=== PATIENT | male | born 1945 | race Caucasian/White ===

== ENCOUNTER 2019-05-10 18:16 | Inpatient (IN) | payer MEDICARE, OTHER ==
[~2019-05-10] VITALS: Ht 180.3 cm; Wt 84.4 kg
[~2019-05-10 18:16] MED LIST: MAGCHL64ER PO; METR500 PO; OXYACE5T PO
[2019-05-10 18:50] LABS: BASOPHILS ABSOLUTE AUTO 0.02 K/mm3 (0.00-0.23); BASOPHILS PERCENT AUTO 0 % (0-2); EOSINOPHILS ABSOLUTE AUTO 0.02 K/mm3 (0.00-0.68); EOSINOPHILS PERCENT AUTO 0 % (0-6); Hematocrit 38.1 % (37.0-53.0); IMMATURE GRAN ABSOLUTE AUTO 0.01 K/mm3 (0.00-0.10); IMMATURE GRAN PERCENT AUTO 0 % (0-1); LYMPHOCYTES ABSOLUTE AUTO 0.49 K/mm3 (0.84-5.20); LYMPHOCYTES PERCENT AUTO 8 % (21-46); MONOCYTES ABSOLUTE AUTO 0.77 K/mm3 (0.16-1.47); MONOCYTES PERCENT AUTO 12 % (4-13); Mean Corpuscular HGB 35.1 pg (26.0-34.0); Mean Corpuscular HGB Conc 34.1 g/dL (31.5-36.5); Mean Corpuscular Volume 103 fL (80-100); Mean Platelet Volume 10.1 fL (9.1-12.4); NEUTROPHILS ABSOLUTE AUTO 4.96 K/mm3 (1.96-9.15); NEUTROPHILS PERCENT AUTO 79 % (41-73); Platelet Count 125 K/mm3 (150-400); RDW Coefficient Variation 14.2 % (11.7-14.2); RDW Standard Deviation 53.7 fL (35.1-46.3); White Blood Cell Count 6.27 K/mm3 (4.00-11.30)
[2019-05-10 19:13] LABS: Alanine Aminotransfer (ALT/SGP 68 U/L (12-78); Albumin/Globulin Ratio 0.9 (0.8-1.8); Alk Phos 120 U/L (50-136); Anion Gap 16 mmol/L (6-16); Aspartate Aminotrans (AST/SGOT 93 U/L (12-37); Bilirubin, Total 2.8 mg/dL (0.1-1.0); Blood Urea Nitrogen 8 mg/dL (8-24); Bun/Creatinine Ratio 12.1 (12.0-20.0); CO2, Blood 20 mmol/L (21-32); Calcium, Blood 8.1 mg/dL (8.5-10.1); Chloride, Blood 104 mmol/L (98-108); Creatinine, Blood 0.66 mg/dL (0.60-1.20); Globulin, Blood 3.3 g/dL (2.2-4.0); Glomerular Filtration Rate >60 (60-); Glucose, Blood 116 mg/dL (70-99); Potassium, Blood 4.2 mmol/L (3.5-5.5); Sodium, Blood 140 mmol/L (136-145); Total Protein, Blood 6.3 g/dL (6.4-8.2)
[2019-05-10 19:17] LABS: Troponin I 0.677 ng/mL (0.000-0.040)
[2019-05-10 19:39] LABS: CPK Creatine Kinase 823 U/L (39-308)
[2019-05-10 19:58] LABS: Creatine Kinase MB <1.0 ng/mL (0.0-3.6); Creatine Kinase MB Index Unable to Calculate (0.0-4.0)
[2019-05-10 20:05] LABS: International Normalized Ratio 1.16; Prothrombin Time Results 12.1 Sec (9.7-11.5)
[2019-05-10 20:22] LABS: Ethanol (Alcohol), Blood, Med <3 mg/dL
[2019-05-10 21:00] LABS: Source, Urine Catheter
[2019-05-10 21:06] LABS: Bilirubin, Urine Neg (Neg); Blood, Urine 3+ (Neg); Glucose Qualitative, Urine Neg (Neg); Ketones, Urine 2+ (Neg); Leukocyte Esterase, Urine 1+ (Neg); Nitrite, Urine Neg (Neg); Protein, Urine 2+ (Neg); Urobilinogen, Urine 1+ (Normal)
[2019-05-10 21:20] LABS: Appearance, Urine Clear (Clear); Color, Urine Yellow (P-Yellow)
[2019-05-10 21:22] LABS: Bacteria Few /hpf; Mucus Light (0-Heavy); Red Blood Cells, Urine 0-2 /hpf (0-2); Squamous Epithelial Cells Rare /hpf (Few); White Blood Cells, Urine 0-2 /hpf (0-5)
[2019-05-10 21:47] LABS: U Amphetamine Screen Not Detected; U Barbituate Screen Not Detected; U Benzodiazapine Screen Not Detected; U Buprenorphine Screen Not Detected; U Cannabinoids Screen Not Detected; U Cocaine Screen Not Detected; U Methadone Screen Not Detected; U Methamphetamine Screen Not Detected; U Opiates Screen Not Detected; U Oxycodone Screen Not Detected; U Phencyclidine Screen Not Detected; U Propoxyphene Screen Not Detected
[2019-05-11 01:26] LABS: Magnesium, Blood 0.8 mg/dL (1.6-2.4); Troponin I 0.92 ng/mL (0.000-0.040)
--- NOTE | 2019-05-11 01:32 | NUR ---
CRITICAL LABS: CALL IS RECIEVED FROM LAB TO REPORT CRITICAL LABS FOLLOWS. LACTIC ACID 4.0, TROPONIN 0.920 AND MAG OF 0.8. CALL IS PLACED TO DR HERNÁNDEZ, AWAITING CALL BACK AT THIS TIME.
--- NOTE | 2019-05-11 01:34 | NUR ---
LATE ENTRY FOR 05/11/19 0100, ADMISSION: PATIENT IS RECIEVED FROM ER VIA STRETCHER. REPORTING GENERALIZED PAIN 01/06. HEPARIN IS INFUSING, THIS ORDER IS DISCONTINUED BY DR EDMONDS AND IS STOPPED. BED BATH IS GIVEN, SKIN IS INTACT. IV FENTANYL IS GIVEN FOR PAIN WITH GOOD EFFECT.
--- NOTE | 2019-05-11 01:42 | NUR ---
CRITICAL LABS: CALL BACK RECIEVED FROM DR HERNÁNDEZ, ORDER FOR MAG 2 GRAMS IV NOW IS OBTAINED.
[2019-05-11 01:43] LABS: Creatine Kinase MB 6.5 ng/mL (0.0-3.6)
[2019-05-11 04:12] LABS: Hematocrit 35.1 % (37.0-53.0); Hemoglobin 11.9 g/dL (13.5-17.5); Mean Corpuscular HGB Conc 33.9 g/dL (31.5-36.5); Mean Corpuscular Volume 103 fL (80-100); Mean Platelet Volume 10.1 fL (9.1-12.4); Platelet Count 96 K/mm3 (150-400); RDW Coefficient Variation 13.9 % (11.7-14.2); RDW Standard Deviation 52.8 fL (35.1-46.3); White Blood Cell Count 4.06 K/mm3 (4.00-11.30)
[2019-05-11 04:31] LABS: Alanine Aminotransfer (ALT/SGP 55 U/L (12-78); Albumin, Blood 2.6 g/dL (3.4-5.0); Albumin/Globulin Ratio 0.9 (0.8-1.8); Alk Phos 99 U/L (50-136); Anion Gap 7 mmol/L (6-16); Aspartate Aminotrans (AST/SGOT 76 U/L (12-37); Bilirubin, Total 2.9 mg/dL (0.1-1.0); Blood Urea Nitrogen 7 mg/dL (8-24); Bun/Creatinine Ratio 11.8 (12.0-20.0); CO2, Blood 28 mmol/L (21-32); Calcium, Blood 7.5 mg/dL (8.5-10.1); Chloride, Blood 106 mmol/L (98-108); Creatinine, Blood 0.59 mg/dL (0.60-1.20); Globulin, Blood 2.8 g/dL (2.2-4.0); Glomerular Filtration Rate >60 (60-); Glucose, Blood 124 mg/dL (70-99); Potassium, Blood 3.4 mmol/L (3.5-5.5); Sodium, Blood 141 mmol/L (136-145); Total Protein, Blood 5.4 g/dL (6.4-8.2)
--- NOTE | 2019-05-11 04:40 | NUR ---
CRITICAL LAB: CALL WAS RECIEVED FROM LAB, LACTIC ACID IS CRITICAL AT 2.1. THIS IS IMPROVED FROM 4.0. RESULT IS REVIEWED WIOTH CHARGE NURSE, NO CALL TO MD THIS IS AN EXPECTED TREND.
--- NOTE | 2019-05-11 06:18 | NUR ---
SHIFT SUMMARY: HEPARIN GTT WAS DC'D. VS ARE STABLE WITH HTN AND TACHYCARDIA, PATIENT IS ASYMPTAMATIC, MD IS AWARE. ORDER FOR REGULAR DIET WAS OBTAINED, PT TOLERATES APPLE JUICE WELL. PATIENT REPORTS PAIN 8-10/10 WITH ANY MOVEMENT, IV FENTANYL IS EFFECTIVE FOR PAIN. T&P IS PROVIDED, PT CAN NOT TURN INDEPENDANTLY.
[2019-05-11 07:12] LABS: Troponin I 0.979 ng/mL (0.000-0.040)
[2019-05-11 07:35] LABS: Creatine Kinase MB 4.8 ng/mL (0.0-3.6); Creatine Kinase MB Index 0.9 (0.0-4.0)
--- NOTE | 2019-05-11 07:37 | NUR ---
CRITICAL LAB: TROPONIN IS CRITICAL AT 0.979, DR MICHAEL IS NOTIFIED AN ORDER TO REPEAT TROPONIN IN 6 HOURS. MD IS ALSO NOTIFIED OF ELEVATED BP'S. MD WILL BE IN TO EVALUATE PATIENT AND VS. PATIENT REMAINS ASYMPTOMATIC ABND IS RESTING IN BED.
--- NOTE | 2019-05-11 11:08 | NUR ---
Pt transferred to ICU 5.
--- NOTE | 2019-05-11 11:15 | NUR ---
PT TRANFERRED TO ICU FROM PCU IN BED POST RAPID RESPONSE. PT IN SEVERE RESPIRATORY DISTRESS, ON NRB 15L/MIN-SATURATIONS DIFFICULT TO OBTAIN 85-89%. LUNGS COARSE T/O. TACHYPNEIC HEARTRATE TACHY 140-150'S, BP ELEVATED. RESTLESS, RX WITH ATIVAN. DR. JAEGER AT BEDSIDE, REVIEWED PT. SKIN MOTTLED, MOIST. 2 NEW PIV PLACED. GARNER PLACED-MINIMAL 3 CC YELLOW URINE OBTAINED. PLANS FOR INTUBATION.
--- NOTE | 2019-05-11 11:38 | NUR ---
RAPID RESONSE This RN and PCT at bedside at approx 1030 for attends change and reposition of pt. Pt given 25 mcg of fentanyl per orders for pain 8/ prior to repositioning. Pt alert and oriented, 95% RA, conversing appropriately with staff during care. Pt denies chest pain or pressure during care. Pt rolled initially onto the pt's left side without distress. Pt then rolled onto his right side and agitation increased. Pt placed in fowlers and mild respiratory distress noted. Oximeter reads 62% RA and moderate distress ensues. oxygen applied. Pt saturations suddenly drop to 30%; pt cyanotic, grunting, and in severe distress. 15L non-rebreather placed. Rapid Response called. RT at bedside. director of health education at bedside. Rapid response team at bedside. Pt o2 saturations improved to 92% on NRB mask.
--- NOTE | 2019-05-11 12:10 | NUR ---
RX WITH ATIVAN MG, PROPOFOL STARTED. DR. JAEGER INTUBATED PT WITHOUT PROBLEMS, 8.0 ETT 24 DARIEL, COLOR CHANGE ETCO2, BREATH SOUNDS BILATERALLY. SATURATIONS STABLE WITH 100% FI02, CHANGED TO PORTABLE VENT FOR SCAN. HEPARIN GTT STARTED AT 15 UNITS/KG/HR PER PHARMACIST. OGT PLACED, AIR BOLUS OVER STOMACH HEARD. SCANT URINE OUTPUT. BOLUS INFUSING NS 999. HEARTRATE IMPROVED-SINUS 90'S NOW. BP STABLE. TO CT AND RETURN WITHOUT INCIDENT. URINE OUTPUT IMPROVING. PROPOFOL AT 40 MCG/KG/MIN. COLOR IMPROVED, MOTTLING RESOLVED.
[2019-05-11 12:22] LABS: pH Blood Arterial 7.38 (7.35-7.45)
[2019-05-11 12:23] LABS: PCO2 Arterial 39.7 mmHg (35-45); PO2 Arterial 94.9 mmHg (80-100)
--- NOTE | 2019-05-11 13:00 | NUR ---
DR. JAEGER REVIEWED CT, HEPARIN D/C, NO PE. PT TOLERATING VENT. SUCTIONED THICK CREAM SECRETIONS, SPECIMEN SENT. FIO2 DECREASED TO 65%, SATURATIONS 98%. FLUID BOLUS ONE LITER INFUSED-BECAME HYPOTENSIVE, PROPOFOL ON HOLD WITHOUT IMPROVEMENT. DR. JAEGER NOTIFIED, SECOND BOLUS STARTED WITH IMPROVEMENT OF BP. NO FAMILY LISTED TO NOTIFY. ABG DONE BY THERAPIST. BLOOD SUGAR STABLE. LABS DRAWN
--- NOTE | 2019-05-11 13:46 | NUR ---
VANESSA JAEGER AT BEDSIDE. VSS NOW. NSR 80'S. TOLERATING VENT
[2019-05-11 15:11] LABS: BASOPHILS ABSOLUTE AUTO 0.01 K/mm3 (0.00-0.23); BASOPHILS PERCENT AUTO 0 % (0-2); EOSINOPHILS ABSOLUTE AUTO 0.01 K/mm3 (0.00-0.68); EOSINOPHILS PERCENT AUTO 0 % (0-6); Hemoglobin 12.4 g/dL (13.5-17.5); IMMATURE GRAN ABSOLUTE AUTO 0.02 K/mm3 (0.00-0.10); IMMATURE GRAN PERCENT AUTO 1 % (0-1); LYMPHOCYTES ABSOLUTE AUTO 0.38 K/mm3 (0.84-5.20); LYMPHOCYTES PERCENT AUTO 9 % (21-46); MONOCYTES ABSOLUTE AUTO 0.34 K/mm3 (0.16-1.47); MONOCYTES PERCENT AUTO 8 % (4-13); Mean Corpuscular HGB 35.2 pg (26.0-34.0); Mean Corpuscular HGB Conc 33.5 g/dL (31.5-36.5); Mean Corpuscular Volume 105 fL (80-100); Mean Platelet Volume 10.3 fL (9.1-12.4); NEUTROPHILS ABSOLUTE AUTO 3.52 K/mm3 (1.96-9.15); NEUTROPHILS PERCENT AUTO 82 % (41-73); Platelet Count 91 K/mm3 (150-400); RDW Standard Deviation 53.4 fL (35.1-46.3); Red Blood Cell Count 3.52 M/mm3 (4.30-5.90); White Blood Cell Count 4.28 K/mm3 (4.00-11.30)
[2019-05-11 15:23] LABS: International Normalized Ratio 1.22; Prothrombin Time Results 12.7 Sec (9.7-11.5)
--- NOTE | 2019-05-11 15:31 | NUR ---
BP MARGINAL. IVF AT 150 CC/HR. NSR. SEDATED WTIH 25 MCG/KG/MIN PROPOFOL COUGHS, RESTLESS WITH ORAL CARE. BILATERAL WRIST RESTRAINTS, EXTUBATION RISK. LABS DRAWN
[2019-05-11 15:39] LABS: Alanine Aminotransfer (ALT/SGP 48 U/L (12-78); Albumin, Blood 2.2 g/dL (3.4-5.0); Albumin/Globulin Ratio 0.8 (0.8-1.8); Alk Phos 95 U/L (50-136); Anion Gap 7 mmol/L (6-16); Aspartate Aminotrans (AST/SGOT 58 U/L (12-37); Bilirubin, Total 2.5 mg/dL (0.1-1.0); Blood Urea Nitrogen 8 mg/dL (8-24); Bun/Creatinine Ratio 10.4 (12.0-20.0); CO2, Blood 26 mmol/L (21-32); Calcium, Blood 6.8 mg/dL (8.5-10.1); Chloride, Blood 107 mmol/L (98-108); Creatinine, Blood 0.77 mg/dL (0.60-1.20); Globulin, Blood 2.8 g/dL (2.2-4.0); Glomerular Filtration Rate >60 (60-); Glucose, Blood 119 mg/dL (70-99); Magnesium, Blood 1.2 mg/dL (1.6-2.4); Phosphorus, Blood 2.6 mg/dL (2.5-4.9); Potassium, Blood 3.6 mmol/L (3.5-5.5); Sodium, Blood 140 mmol/L (136-145)
--- NOTE | 2019-05-11 16:00 | NUR ---
NOTIFIED DR. JAEGER OF TROPONIN, ECHO RESULTS. VSS. TOLERATING VENT
--- NOTE | 2019-05-11 17:41 | NUR ---
DR. LOBO HERE-UPDATED. SEE ORDERS
--- NOTE | 2019-05-11 18:21 | NUR ---
IV MAGNESIUM AND POTASSIUM REPLACEMENTS STARTED. IV LASIX GIVEN. WILL MONITOR VS CLOSELY. PT MORE AWAKE, RESTLESS, TOLERATING VENT SUPPORT WITH PROPOFOL AT 35 MCG/KG/MIN. NSR. SBP 90'S. FI02 DECREASED TO 30%. UO ADEQATE VIA GARNER. OGT WITH 25 CC BROWNISH RED DRAINAGE. CLAMPED FOR PO PLAVIX.
--- NOTE | 2019-05-11 20:16 | NUR ---
ASSUMED PT CARE FROM ALEX LERMA AT 1915. PT INTUBATED AND SEDATED. PROPOFOL AT 35MCG/KG/MIN UPON CHANGE OF SHIFT. VENT SETTINGS: AC 18, TV 400, PEEP 8, FIO2 30%. ETT 8.0 AND 24CM AT THE LIP. OG WAS CLAMPED D/T RECENT ADMINISTRATION OF PLAVIX PER TUBE. LUNG SOUNDS ARE DIMINISHED T/O ALL LOBES WITH MODERATE AMOUNTS OF THICK, YELLOW SECRETIONS SUCTIONED FROM ETT. PT WITH EXCESSIVE ORAL SECRETIONS; WITH PINK STREAKED SECRETIONS SUCTIONED FROM DEEP SUBGLOTTIC SUCTIONING. POSITIVE GAG AND COUGH REFLEX. HEART TONES ARE VERY DISTANT AND UNABLE TO ADEQUATELY HEAR. NSR WITH HR 80'S. BP'S ARE ON THE LOWER END WITH SBP 90'S, BUT MAP IS MAINTAINING AROUND 60-65 MM HG. TEMP GARNER PROBE IS READING A TEMP OF 100.8; REMOVED ALL BLANKETS AND PILLOWS AND OBTAINED FAN FOR BEDSIDE. URINE OUTPUT APPEARS ADEQUATE AND IS YONI IN COLOR AND CLEAR. PT APPEARS VERY EDEMATOUS TO BILATERAL LEGS AND THIGHS, WELL TO SCLERA AND EYE LIDS. SHORTLY AFTER ASSUMPTION OF CARE AT 1945 PT HAD AN EPISODE OF OXYGEN SATURATIONS DECREASING TO LOW 80'S; NO HIGH PEAK PRESSURES WERE ALARMING AT THIS TIME. PT WAS IMMEDIATELY INCREASED TO 100% FIO2 AND SUCTIONED BOTH ORALLY AND VIA ETT. AFTER SUCTIONING PT'S BIOX INCREASED TO 90%. RT AT BEDSIDE TITRATING FIO2 TO EFFECT; ABLE TO TITRATE FAR DOWN AT 45% WITH BIOX >91%. MEDICATED WITH ADJUNCT FENTANYL FOR SEDATION D/T PT NOT TOLERATING ETT AND CLENCHING DOWN AROUND ETT, WELL ATTEMPTING TO PROTUDE TONGUE TO PUSH OUT ETT. FENTANYL APPEARED EFFECTIVE; THEREFORE, TURNED PROPOFOL DOWN TO 25MCG/KG/MIN. CALLED DR. JAEGER AT 2029 FOR AN UPDATE ON PT CONDITION. NEW ORDERS TO INCREASE PEEP TO 10 AND TO MAINTAIN NS AT 150MLS/HR FOR BLOOD PRESSURE SUPPORT. ALSO OBTAINED ORDERS FOR ELECTROLYTE REPLACEMENT PROTOCOL. NO NEW ORDERS. WILL CONTINUE TO MONITOR FOR ANY CHANGES.
--- NOTE | 2019-05-11 21:15 | NUR ---
PLACED CALL TO DR. JAEGER UPDATED REGARDING PT'S OXYGEN SATURATIONS DECREASING TO 85% WITH PEEP OF 10 AND 100% FIO2. NO SECRETIONS SUCTIONED VIA ORAL AND ETT. NEW ORDERS TO TITRATE PEEP TO 12 AND UP TO 15 TO MAINTAIN OXYGEN SATURATIONS. RT AT BEDSIDE AND INCREASED PEEP TO 12 AND ABLE TO TITRATE FIO2 DOWN TO 50%. LUNG SOUNDS MORE CLEAR T/O ALL LOBES. BIOX IS CURRENTLY AT 98%. ALSO OBTAINED NEW ORDERS FOR FENTANYL 25-50MCG IV Q1 PRN FOR ADJUNCT SEDATION.
--- NOTE | 2019-05-12 03:32 | NUR ---
CHANGE PT HAD ANOTHER EPISODE OF A DECREASE IN HIS OXYGEN SATURATIONS DOWN TO LOW 80'S. PEEP WAS AT 12, FIO2 INCREASED TO 100%, AND MINIMAL THICK, YELLOW PLUGS SECRETED FROM ETT. BIOX REMAINED AT 85%. INCREASED PEEP TO 14 AND REPOSITIONED PT BACK ON HIS BACK. PT REMAINED AT 85% FOR SIGNIFICANT AMOUNT OF TIME. BUMPED PEEP TO 15 PER ORDERS AND PT RECOVERED WITH BIOX 91% WITH FIO2 AT 100%. BIOX SLOWLY INCREASED TO 100% IN WHICH RT STARTED TITRATING BACK DOWN ON PEEP AND FIO2. PT IS CURRENTLY AT PEEP OF 10 AND FIO2 40%. PT CONTINUES TO HAVE THE RECURRENT EPISODES OF DECREASED OXYGEN SATURATIONS IN WHICH IT TAKES HIM A WHILE TO RECOVER. LUNG SOUNDS REMAIN CLEAR TO DIMINISHED T/O ALL LOBES.
[2019-05-12 03:40] LABS: BASOPHILS ABSOLUTE AUTO 0.02 K/mm3 (0.00-0.23); BASOPHILS PERCENT AUTO 1 % (0-2); EOSINOPHILS ABSOLUTE AUTO 0.09 K/mm3 (0.00-0.68); EOSINOPHILS PERCENT AUTO 2 % (0-6); Hematocrit 35.9 % (37.0-53.0); Hemoglobin 11.8 g/dL (13.5-17.5); IMMATURE GRAN ABSOLUTE AUTO 0.02 K/mm3 (0.00-0.10); IMMATURE GRAN PERCENT AUTO 1 % (0-1); LYMPHOCYTES PERCENT AUTO 22 % (21-46); MONOCYTES PERCENT AUTO 7 % (4-13); Mean Corpuscular HGB 35.4 pg (26.0-34.0); Mean Corpuscular HGB Conc 32.9 g/dL (31.5-36.5); Mean Platelet Volume 10.8 fL (9.1-12.4); NEUTROPHILS ABSOLUTE AUTO 2.71 K/mm3 (1.96-9.15); NEUTROPHILS PERCENT AUTO 67 % (41-73); Platelet Count 79 K/mm3 (150-400); RDW Coefficient Variation 14.2 % (11.7-14.2); RDW Standard Deviation 56.4 fL (35.1-46.3); Red Blood Cell Count 3.33 M/mm3 (4.30-5.90); White Blood Cell Count 4.04 K/mm3 (4.00-11.30)
[2019-05-12 03:51] LABS: International Normalized Ratio 1.21; Prothrombin Time Results 12.6 Sec (9.7-11.5)
[2019-05-12 03:54] LABS: Mean Corpuscular Volume 108 fL (80-100)
[2019-05-12 04:18] LABS: Alanine Aminotransfer (ALT/SGP 44 U/L (12-78); Albumin, Blood 2.2 g/dL (3.4-5.0); Albumin/Globulin Ratio 0.8 (0.8-1.8); Anion Gap 7 mmol/L (6-16); Aspartate Aminotrans (AST/SGOT 57 U/L (12-37); Bilirubin, Total 1.8 mg/dL (0.1-1.0); Blood Urea Nitrogen 9 mg/dL (8-24); CO2, Blood 25 mmol/L (21-32); Calcium, Blood 7.5 mg/dL (8.5-10.1); Chloride, Blood 109 mmol/L (98-108); Creatinine, Blood 0.82 mg/dL (0.60-1.20); Globulin, Blood 2.9 g/dL (2.2-4.0); Glomerular Filtration Rate >60 (60-); Glucose, Blood 105 mg/dL (70-99); Magnesium, Blood 1.5 mg/dL (1.6-2.4); Phosphorus, Blood 3.3 mg/dL (2.5-4.9); Potassium, Blood 3.8 mmol/L (3.5-5.5); Sodium, Blood 141 mmol/L (136-145); Total Protein, Blood 5.1 g/dL (6.4-8.2)
[2019-05-12 04:21] LABS: Percent Saturation 30.5 % (20.0-50.0)
[2019-05-12 04:27] LABS: PCO2 Arterial 37.7 mmHg (35-45); PO2 Arterial 187 mmHg (80-100); pH Blood Arterial 7.43 (7.35-7.45)
[2019-05-12 04:35] LABS: Alk Phos 91 U/L (50-136); CPK Creatine Kinase 311 U/L (39-308)
[2019-05-12 04:48] LABS: Troponin I 0.714 ng/mL (0.000-0.040)
[2019-05-12 05:02] LABS: Creatine Kinase MB 2.2 ng/mL (0.0-3.6); Creatine Kinase MB Index 0.7 (0.0-4.0)
--- NOTE | 2019-05-12 05:23 | NUR ---
END OF SHIFT SUMMARY REMAINS INTUBATED/SEDATED. PROPOFOL MAINTAINING AT 25MCG/KG/MIN T/O NIGHT. PT WITHDRAWALS FROM NOXIOUS STIMULI, BUT STILL UNABLE TO FOLLOW ANY COMMANDS. VENT: AC 18, TV 400, PEEP 8, FIO2 30%. WITH BIOX > 91%. OXYGEN SATURATIONS TEND TO DECREASE SIGNIFICANTLY AFTER REPOSITIONING IN WHICH IT TAKES PT A WHILE TO RECOVER. LUNG SOUNDS REMAIN CLEAR TO DIMINISHED T/O ALL LOBES. PT HAS BEEN NSR WITH HR 70-80'S T/O SHIFT. VSS. TMAX 100.8; REMOVAL OF BLANKETS AND FAN BROUGHT TEMP DOWN TO 97.9. HEPARIN CONTINUES AT 14 UNITS/KG/HR. NS AT 150MLS/HR. ADEQUATE URINARY OUTPUT THIS SHIFT; ACCOUNTING FOR 850. DARK YONI COLORED URINE WITH MINIMAL SEDIMENT NOTED. PT REMAINS EDEMATOUS TO BLE'S. NO FAMILY AT BEDSIDE AT THIS TIME. WILL CONTINUE TO MONITOR UNTIL REPORT IS HANDED OFF TO ONCOMING RN.
--- NOTE | 2019-05-12 08:00 | NUR ---
INITIAL ASSESMENT PT SEDATED AND AROUSABLE TO PAINFUL STIM. PROP REMAINS AND WILL WEAN TOLERATED. PUPILS EQUAL AND NO /S OF NONVERBAL PAIN AT THIS TIME. VSS, NSR AND EDEMAD T/O HEPARIN QTT REMAINS AND WILL ADJUST PER RX. AFEBRILE AND PALP PULSES T/O. ETT 8 AT 24 AND REMAINS ON VENT SE RT FLOWSHEET. NO S/S OF RESP DISTRESS OR ACUTE DESAT AT THIS TIME. CLEAR AND DIM WITH MINIMAL SPUTUM. OG TO LIS WITH BILE OUTPUT. UO MINIMAL BUT GREATER THAN 30ML/HR DARK YONI AND CLEAR. ABD SOFT ROUND AND NON TENDER AND NO BM. WILL CONT TO MONITOR
--- NOTE | 2019-05-12 09:30 | NUR ---
SBT PT PLACED ON SBT AND PROPOFOL OFF. TOLERATING THUS FAR. WILL CONT TO MONITOR.
--- NOTE | 2019-05-12 13:30 | NUR ---
PT UPDATE PT PLACED BACK ON VENT AND PROPOFOL REINITIATED. VSS, PT RESTLES AND FOLLOWING COMMANDS. VSS AND TOLERATING VENT SETTINGS. WILL INITIATE TF GIVEN PT WILL REMAIN INTUBATED. GARNER INTACT AND DRAINING. WILL CONT TO MONITOR
--- NOTE | 2019-05-12 20:23 | NUR ---
ASSUMED PT CARE FROM ALEX COLLIER AT 1915 PT REMAINS INTUBATED/SEDATED. PROPOFOL AT 30MCG/KG/MIN. PT WITHDRAWALS FROM NOXIOUS STIMULI AND ATTEMPTS TO MAKE PURPOSEFUL MOVEMENT TOWARDS ETT. PT REMAINS IN BILATERAL SOFT WRIST RESTRAINTS. DOES NOT OPEN EYES TO VERBAL STIMULI; OR FOLLOW COMMANDS. HOWEVER, WILL REASSESS DURING SEDATION VACATION WITH SPONTANEOUS BREATHING TRIAL IN THE AM. ETT 8.0 AND 24CM AT THE LIP. VENT SETTINGS: AC 18, TV 400, PEEP 5, FIO2 30%, AND BIOX 99%. LUNG SOUNDS ARE CLEAR T/O ALL LOBES. MODERATE AMOUNTS OF THICK PALE, YELLOW SECRETIONS SUCTIONED FROM ETT. HEART TONES REMAIN DISTANT; HR 70-80'S AND NOTED TO BE NORMAL SINUS. BLOOD PRESSURES STABLE WITH MAP GREATER THAN 65 MM HG. NS INFUSING AT 50MLS/HR, HEPARIN REMAINS AT 14 UNITS/KG/HR PER PHARMACY CONSULT. PIVOT 1.5 INFUSING AT 25MLS/HR; GOAL OF 40MLS/HR; DUE TO INCREASE AT 2100. RESIDUAL CHECK WAS 0CC. PT REMAINS EDEMATOUS. MINIMAL URINE OUTPUT NOTED TO GARNER CATHETER. DARK YONI COLORED URINE NOTED WITH STREAKS OF RED/PINK SEDIMENT NOTED TO CATHETER TUBING. TEMP IS 100.0; THEREFORE, REMOVED BLANKETS AND PLACED FAN IN FRONT OF PT. WILL CONTINUE TO MONITOR.
[2019-05-13 03:28] LABS: BASOPHILS ABSOLUTE AUTO 0.03 K/mm3 (0.00-0.23); BASOPHILS PERCENT AUTO 1 % (0-2); EOSINOPHILS ABSOLUTE AUTO 0.13 K/mm3 (0.00-0.68); EOSINOPHILS PERCENT AUTO 4 % (0-6); Hematocrit 34.2 % (37.0-53.0); Hemoglobin 11.2 g/dL (13.5-17.5); IMMATURE GRAN ABSOLUTE AUTO 0.01 K/mm3 (0.00-0.10); IMMATURE GRAN PERCENT AUTO 0 % (0-1); LYMPHOCYTES ABSOLUTE AUTO 0.67 K/mm3 (0.84-5.20); LYMPHOCYTES PERCENT AUTO 23 % (21-46); MONOCYTES ABSOLUTE AUTO 0.41 K/mm3 (0.16-1.47); MONOCYTES PERCENT AUTO 14 % (4-13); Mean Corpuscular HGB 34.8 pg (26.0-34.0); Mean Corpuscular HGB Conc 32.7 g/dL (31.5-36.5); Mean Corpuscular Volume 106 fL (80-100); Mean Platelet Volume 10.4 fL (9.1-12.4); NEUTROPHILS ABSOLUTE AUTO 1.68 K/mm3 (1.96-9.15); NEUTROPHILS PERCENT AUTO 57 % (41-73); NRBC ABSOLUTE 0.02 K/mm3 (0.00-0.02); NRBC Auto 0.7 /100 WBC (0.0-0.2); Platelet Count 84 K/mm3 (150-400); RDW Coefficient Variation 14.1 % (11.7-14.2); RDW Standard Deviation 54.9 fL (35.1-46.3); Red Blood Cell Count 3.22 M/mm3 (4.30-5.90); White Blood Cell Count 2.93 K/mm3 (4.00-11.30)
[2019-05-13 03:43] LABS: Albumin, Blood 2.1 g/dL (3.4-5.0); Anion Gap 10 mmol/L (6-16); Blood Urea Nitrogen 11 mg/dL (8-24); Bun/Creatinine Ratio 15.6 (12.0-20.0); CO2, Blood 24 mmol/L (21-32); Calcium, Blood 7.2 mg/dL (8.5-10.1); Chloride, Blood 108 mmol/L (98-108); Creatinine, Blood 0.71 mg/dL (0.60-1.20); Glomerular Filtration Rate >60 (60-); Glucose, Blood 118 mg/dL (70-99); Magnesium, Blood 1.4 mg/dL (1.6-2.4); Phosphorus, Blood 2.2 mg/dL (2.5-4.9); Potassium, Blood 3.4 mmol/L (3.5-5.5); Sodium, Blood 142 mmol/L (136-145)
--- NOTE | 2019-05-13 06:19 | NUR ---
END OF SHIFT SUMMARY PT REMAINS INTUBATED AND SEDATED. AROUND 0000 PT CHANGED FROM AC TO SPONTANEOUS WITH PRESSURE SUPPORT 7/5 AND FIO2 30%. PROPROFOL DECREASED DOWN TO 10MCG/KG/MIN AT THAT TIME. PT ABLE TO FOLLOW COMMANDS APPROPRIATELY, TRACK WITH EYES, AND SHAKE HEAD APPROPRIATELY TO YES/NO QUESTIONS. PT TOLERATED SPONTANEOUS FOR ABOUT FOUR HOURS IN WHICH HE WAS GETTING RESTLESS AND IN ORDER TO MAKE MORE COMFORTABLE PT SWITCHED BACK TO AC 16, TV 400, PEEP 5, FIO2 30%. PROPOFOL INCREASED TO 30MCG/KG/MIN. PT HAS BEEN NSR WITH HR 70-90'S. BLOOD PRESSURES STABLE. HEPARIN CURRENTLY INFUSING AT 15UNITS/KG/HR. NS AT 50MLS/HR. REPLACING MAGNESIUM AND POTASSIUM PHOSPHATE PER ELECTROLYTE REPLACEMENT PROTOCOL. TUBE FEEDING, PIVOT 1.5, REMAINS AT GOAL OF 40CC/HR WITH 30CC WATER FLUSHES Q4HRS. NO RESIDUALS NOTED ALL SHIFT; PT TOLERATING WELL. TEMP GARNER PROBE SHOWING TMAX OF 100.2. CATHETER IS PATENT AND DRAINING TO GRAVITY DARK, YELLOW URINE WITH RED/PINK SEDIMENT. MINIMAL OUTPUT; 250CC THIS SHIFT. PT REMAINS EDEMATOUS AND FLUID POSITIVE. HOWEVER, LUNG SOUNDS REMAIN CLEAR T/O ALL LOBES. MODERATE AMOUNTS OF THICK PALE, YELLOW SECRETIONS SUCTIONED. WILL CONTINUE TO MONITOR UNTIL REPORT IS HANDED OFF TO ONCOMING RN.
--- NOTE | 2019-05-13 07:16 | NUR ---
UPON CHANGE OF SHIFT DURING BEDSIDE REPORTING IT WAS MENTIONED REGARDING PT HAVING ORDERS FOR ELECTROLYTE REPLACEMENT PROTOCOL; THEREFORE, PT WAS RECEIVING 4GM OF MAGNESIUM FOR A LEVEL OF 1.4. ONCOMING NURSE QUESTIONED ORDER IN WHICH WE BOTH AGREED IT GENERALLY IS 2GM AND THAT 4GM SEEMED TO HIGH. UPON DOUBLE CHECKING ORDERS TOGETHER WE FOUND A DISCREPANCY BETWEEN WHAT THE FACILITY PROTOCOL IS VIA POLICY STAT VS WHAT THE PROTOCOL VIA THE ACTUAL ORDER SET STATES. ORDER SET STATES A MG LEVEL OF 1.4 SHOULD BE REPLACED WITH 4GM OF MAGNESIUM; HOWEVER, THE PROTOCOL VIA OUR POLICY STATES A MG LEVEL OF 1.4 SHOULD BE REPLACED WITH 2GM. THEREFORE, WE BOTH HARD SET THE PUMP TO STOP ADMINISTERING MAGNESIUM AFTER 2GM. 4GM OF MAGNESIUM COMES IN A 100ML BAG; CURRENTLY INFUSING AT 25MLS/HR; TOTAL INFUSED WAS 31CC; THEREFORE, VTBI SET FOR ANOTHER 19CC TO TOTAL 2GM OF MAGNESIUM INFUSED.
--- NOTE | 2019-05-13 10:40 | NUR ---
MAGNESIUM DOCUMENTATION... PER JONNATHAN PLANING MACHINE OPERATOR... MAG. INFUSION WAS NOTED TO BE JUST 2GM ON ELECTROLYTE PROTOCOL POLICY FOR A MAG LEVEL OF 1.4 THIS AM. THE INFUSING MAG. IVPB WAS SET TO INFUSE JUST 2GM WITH THE HARD LIMITS ON THE PUMP. THIS WAS COMPLET AT [address] HERNDON WAS INFORMED TO THE MAG LEVEL AND 2 GRAM MAG INFUSION AND MEDICALLY APPROVED THIS ACTION. AT APPROX 0850 PHARMACY WAS CALLED AND NOTIFIED OF THE POLICY AND THE ACTUAL REPLACEMENT PROTOCAL ORDER.
--- NOTE | 2019-05-13 13:24 | NUR ---
early am pt note...PT IS VENTILATED ON AC SETTINGS, GOOD SATS, VSS, I/O NOTED AND MAG INFUSING FOR TOTAL OF 2 GRAMS. PT IVF SETTINGS IS NOTED PER FLOWSHEET. PT IS RESTRAINED WITH NEW ORDERS PLACED. DR HRENDON WAS IN TO SEE AND ASSESS PT AND POSSIBLE LASIX ORDER TO FOLLOW, SEE EMAR.
--- NOTE | 2019-05-13 13:47 | NUR ---
PT REMAINS ON PS-7 TRAIL W/O DISTRESS AND VSS.
--- NOTE | 2019-05-13 17:45 | NUR ---
APPROX 15OO PT CHANGED BACK TO AC 18,400,30%,PEEP5 DUE TO FATIGUE AND AGITATION WITH RR UP IN THE MID 30 RANGE. TF FORMULA WAS CHANGED AND TUBING TOMORROW. TF IS AT NEW RATE SENCE CHANGE PER DIETARY TO 30ML AND W/O RESUDUALS. PT U.O NOTED WITH LASIX IVP TO HAVE INCREASED.
--- NOTE | 2019-05-13 17:50 | NUR ---
WITH PROPOFOL INC TO 45MCG AND FENTALYL PUSHES PT HAS RESTED BETTER ON THE AC SETTINGS. VSS, I/O NOTED, THIN WHITE SECREATIONS NOTED WITH SX. PT REMAINS RESTRAINED, SATS STABLE, TEMP IS ELEVATED NOTED TO 101.7 AND MEDICATED NOTED AND WILL FOLLOW AND REPORT. REMAINS SR WITH BORDERLING FIRST DEGREE AV BLOCK.
--- NOTE | 2019-05-13 20:00 | NUR ---
ASSUMPTION OF CARE ASSUMED CARE OF PT @ 1900. PT INTUBATED AND SEDATED, VENT SET TO AC 18/400/5/30%, O2 SATURATIONS 98%, LS COARSE T/O, LARGE PALE YELLOW SECRETIONS FROM ETT. MONITOR SHOWS SINUS RHYTHM WITH RATE 70'S, BP 114/59 MAP 75. PROPFOL RUNNING AT 45mcg/kg/min, PT RESPONDS TO PAINFUL STIMULI, GRIMACES WITH ORAL CARE. SKIN IS WARM, FRAGILE, AND DRY, PETICHIAE TO BUE, HEPARIN RUNNING AT 31ml/hr PER PHARMACY ORDER. CONTRACTURES NOTED TO FINGERS, BILATERALLY. TF RUNNING @ GOAL RATE OF 30ml/hr, SMALL SOFT BM, GARNER IN PLACE DRAINING DARK YELLOW URINE, SOME SEDIMENT PRESENT.
--- NOTE | 2019-05-14 00:51 | NUR ---
SPOKE WITH DR HERNDON REGARDING BLOOD FROM OG TUBE, BP STABLE, NO CHANGE IN HR AND RHYTHM, ABDOMEN SOFT. NO NEW ORDERS AT THIS TIME.
[2019-05-14 03:50] LABS: BASOPHILS ABSOLUTE AUTO 0.03 K/mm3 (0.00-0.23); BASOPHILS PERCENT AUTO 1 % (0-2); EOSINOPHILS ABSOLUTE AUTO 0.15 K/mm3 (0.00-0.68); EOSINOPHILS PERCENT AUTO 4 % (0-6); Hematocrit 34.3 % (37.0-53.0); Hemoglobin 11.2 g/dL (13.5-17.5); IMMATURE GRAN ABSOLUTE AUTO 0.02 K/mm3 (0.00-0.10); IMMATURE GRAN PERCENT AUTO 1 % (0-1); LYMPHOCYTES ABSOLUTE AUTO 1.18 K/mm3 (0.84-5.20); LYMPHOCYTES PERCENT AUTO 30 % (21-46); MONOCYTES ABSOLUTE AUTO 0.72 K/mm3 (0.16-1.47); MONOCYTES PERCENT AUTO 18 % (4-13); Mean Corpuscular HGB Conc 32.7 g/dL (31.5-36.5); Mean Corpuscular Volume 107 fL (80-100); Mean Platelet Volume 10.2 fL (9.1-12.4); NEUTROPHILS ABSOLUTE AUTO 1.82 K/mm3 (1.96-9.15); NEUTROPHILS PERCENT AUTO 46 % (41-73); Platelet Count 79 K/mm3 (150-400); RDW Coefficient Variation 14.3 % (11.7-14.2); RDW Standard Deviation 55.7 fL (35.1-46.3); White Blood Cell Count 3.92 K/mm3 (4.00-11.30)
[2019-05-14 04:02] LABS: Anion Gap 9 mmol/L (6-16); Blood Urea Nitrogen 11 mg/dL (8-24); Bun/Creatinine Ratio 16.8 (12.0-20.0); CO2, Blood 23 mmol/L (21-32); Calcium, Blood 7.2 mg/dL (8.5-10.1); Chloride, Blood 107 mmol/L (98-108); Creatinine, Blood 0.65 mg/dL (0.60-1.20); Glomerular Filtration Rate >60 (60-); Glucose, Blood 113 mg/dL (70-99); Phosphorus, Blood 2.9 mg/dL (2.5-4.9); Potassium, Blood 3.6 mmol/L (3.5-5.5); Sodium, Blood 139 mmol/L (136-145)
--- NOTE | 2019-05-14 05:43 | NUR ---
SHIFT SUMMARY PT REMAINS INTUBATED AND SEDATED, VENT SET TO AC 18/400/5/30%, O2 SATURATIONS MAINTAINED ABOVE 90%, LUNG SOUNDS COARSE WITH SOME WHEEZING, DIMINISHED IN THE BASES. THICK SANDOVAL TO PALE YELLOW WITH SCANT AMOUNT OF BLOOD FROM ETT. MONITOR SHOWS SINUS RHYTHM, RATE 70'S, MAP 60'S-70'S. TMAX THIS SHIFT 100.4, PRN TYLENOL PROVIDED. OG WITH TF @ GOAL RATE OF 30ml/hr, LOW RESIDUALS, RED DRAINAGE NOTED FROM OG MIDSHIFT, END OF SHIFT RESIDUALS FORMULA/BILE ONLY. GARNER IN PLACE DRAINING YONI COLORED URINE. HEPARIN MANAGED PER PHARMACY, INCREASED TO 17u (33ml/hr) THIS SHIFT. SOME PAIN/DISCOMFORT NOTED T/O SHIFT, PRN FENTANYL ADEQUATE FOR PAIN MANAGEMENT.
--- NOTE | 2019-05-14 07:20 | NUR ---
ASSUMED CARE AT 0700. REPORT FROM FRANCISCO JOHNSON. PT INTUBATED AND SEDATED. VENT SETTINGS AC 18/400/5/30%. PROPOFOL INFUSING AT 45 MCG/KG/MIN. PT RESPONSES TO PAINFUL STIMULI. LUNGS CLEAR. 1+ EDEMA TO LOWER EXTREMITIES. DEPENDENT EDEMA TO SCROTUM AND HANDS. ELEVATED HANDS c PILLOWS. ABD DISTENDED, SOFT, BT X 4. TUBE FEEDINGS CONTINOUS, PIVOT 1.5 AT GOAL OF 30 ML/HR, FLUSH Q4 30 ML. 70 ML RESIDUALS c GASTRIC CONTENT AND FORMULA. TEMP GARNER IN PLACE, PATENT AND DRAINING TO GRAVITY, YONI URINE c SEDIMENT. HEPARIN INFUSING AT 17 UNITS/KG/HR. VSS. WILL CONTINUE TO MONITOR.
--- NOTE | 2019-05-14 08:43 | NUR ---
SEDATION VACATION PROPOFOL PLACED ON STANDBY AT 0735. PT FOLLOWING COMMANDS, VENT SETTINGS CHANGED TO SPONT PS 7/5/30%. MAINTAINED ADEQUATE TITAL VOLUMES, 500'S, AND RATE, 20'S. PT AGGITATED c CARE, TACHYPNEIC, GRIMACING. STARTED PROPOFOL AT 20 MCG/KG/MIN. PT REMAINS ON SPONT VENT SETTINGS, TOLERATING WELL. CLUB DIRECTOR IN TO SEE PT, HEPARIN D/C'D.
--- NOTE | 2019-05-14 13:18 | NUR ---
PROPOFOL PLACED ON STANDBY STARTED PRECEDEX AT 0.4 MCG/KG/HR, PT FOLLOWING COMMANDS. RT AT BEDSIDE FOR T PIECE TRIAL. PT TOLERATED WELL FOR APPROX 15 MINUTES, THEN O2 SATS DECREASED TO MID 80'S, TACHYPNEIC. INCREASINGLY DIFFICULT TO REDIRECT. SUCTIONED THROUGH ETT, THICK WHITE SECRETIONS. RT CANCELLED TRIAL, PLACED ON VENT AT SPONT PS 7/5/40%. PROPOFOL RESTARTED AT 20 MCG/KG/MIN. WILL ATTEMPT AGAIN THIS AFTERNOON.
--- NOTE | 2019-05-14 17:15 | NUR ---
SHIFT SUMMARY PT REMAINS INTUBATED AND SEDATED. VENT SETTINGS AC 18/400/5/30%. PROPOFOL INFUSING AT 15 MCG/KG/HR AND PRECEDEX AT 0.2 MCG/KG/HR. SEDATION VACATION THIS SHIFT. PT FOLLOWED COMMANDS, SPONTANEOUS SETTINGS FOR HALF OF SHIFT. T TRIAL LASTED APPROX 20 MINUTES, PT BECAME AGGITATED, TACHYPNEIC, O2 SATS DECREASED TO HIGH 80'S. DR HERNDON UPDATED. STATED THAT WE WILL ATTEMPT AGAIN TOMORROW. LUNGS CLEAR. PT HAD MODERATE SECRETIONS DURING SHIFT, THIN, WHITE. TUBE FEEDING CONTINUES AT 30 ML/HR c q4 30 ML FLUSHES, RESIDUALS 70-80 ML THIS SHIFT. BM THIS SHIFT. TEMP PROBE GARNER PATENT AND DRAINING TO GRAVITY, YONI URINE c SEDIMENT. HEPARIN DRIP D/C'D THIS SHIFT BY DR VARGAS. REPORT TO ONCOMING NURSE.
--- NOTE | 2019-05-14 20:30 | NUR ---
ASSUMPTION OF CARE ASSUMED CARE OF PT @ 1900. PT INTUBATED AND SEDATED, RESPONDS TO PAINFUL STIMULI. VENT SET TO 18/400/5/30%, LS CLEAR AND DIMINISHED, SUCTIONED LARGE AMOUNT OF THICK SANDOVAL SECRETIONS FROM ETT. MONITOR SHOWS SINUS RHYTHM, WITH 1 DEGREE AV BLOCK, HR 60'S, BP MAPS 60'S-70'S. HYPOACTIVE BOWEL TONES, TF @ GOAL RATE OF 30ml/hr. GARNER IN PLACE DRAINING DARK TEA/RED TINGED COLORE URINE. PROPOFOL RUNNING @15, PRECEDEX @ 0.2 (SEE FLOWSHEET)
[2019-05-15 03:34] LABS: BASOPHILS ABSOLUTE AUTO 0.02 K/mm3 (0.00-0.23); BASOPHILS PERCENT AUTO 1 % (0-2); EOSINOPHILS ABSOLUTE AUTO 0.11 K/mm3 (0.00-0.68); EOSINOPHILS PERCENT AUTO 3 % (0-6); Hematocrit 31.2 % (37.0-53.0); Hemoglobin 10.2 g/dL (13.5-17.5); IMMATURE GRAN ABSOLUTE AUTO 0.04 K/mm3 (0.00-0.10); IMMATURE GRAN PERCENT AUTO 1 % (0-1); LYMPHOCYTES ABSOLUTE AUTO 0.66 K/mm3 (0.84-5.20); LYMPHOCYTES PERCENT AUTO 19 % (21-46); MONOCYTES ABSOLUTE AUTO 0.78 K/mm3 (0.16-1.47); MONOCYTES PERCENT AUTO 22 % (4-13); Mean Corpuscular HGB 35.2 pg (26.0-34.0); Mean Corpuscular HGB Conc 32.7 g/dL (31.5-36.5); Mean Corpuscular Volume 108 fL (80-100); Mean Platelet Volume 10.7 fL (9.1-12.4); NEUTROPHILS ABSOLUTE AUTO 1.88 K/mm3 (1.96-9.15); NEUTROPHILS PERCENT AUTO 54 % (41-73); NRBC ABSOLUTE 0.02 K/mm3 (0.00-0.02); NRBC Auto 0.6 /100 WBC (0.0-0.2); Platelet Count 79 K/mm3 (150-400); RDW Coefficient Variation 14.4 % (11.7-14.2); RDW Standard Deviation 56.8 fL (35.1-46.3); White Blood Cell Count 3.49 K/mm3 (4.00-11.30)
[2019-05-15 03:48] LABS: Anion Gap 7 mmol/L (6-16); Blood Urea Nitrogen 14 mg/dL (8-24); Bun/Creatinine Ratio 21.9 (12.0-20.0); CO2, Blood 22 mmol/L (21-32); Calcium, Blood 7.2 mg/dL (8.5-10.1); Chloride, Blood 110 mmol/L (98-108); Creatinine, Blood 0.64 mg/dL (0.60-1.20); Glomerular Filtration Rate >60 (60-); Glucose, Blood 135 mg/dL (70-99); Phosphorus, Blood 2.7 mg/dL (2.5-4.9); Potassium, Blood 3.6 mmol/L (3.5-5.5); Sodium, Blood 139 mmol/L (136-145)
--- NOTE | 2019-05-15 05:44 | NUR ---
CALL PLACED TO DR HERNDON REGARDING MILD ECTOPY NOTED ON MONITOR, MORNING LABS SHOWED POTASSIUM OF 3.6, MAG DRAWN ON 05/13 WAS 1.4, LOW URINE OUTPUT THIS SHIFT TEA/RED TINGED COLOR. ORDERS TO GIVE 2G MAGNESIUM IV X1.
--- NOTE | 2019-05-15 06:21 | NUR ---
DR VARGAS IN TO SEE PT, UPDATED ON PTS STATUS, NO NEW ORDERS AT THIS TIME.
--- NOTE | 2019-05-15 06:52 | NUR ---
SHIFT SUMMARY PT REMAINS INTUBATED AND SEDATED, VENT SET TO 18/400/5/30%, O2 SATURATIONS MAINTAINED ABOVE 95%, LS COARSE TO CLEAR, DIMINISHED IN THE BASES T/O SHIFT, SMALL TO MODERATE AMOUNT OF CLEAR TO SANDOVAL SECRETIONS FROM ETT T/O SHIFT. MONITOR SHOWS SINUS RHYTHM RATE 56-65, SOME ECTOPY THIS SHIFT (SEE NURSING NOTE) 2G MAG IV CURRENTLY INFUSING. LOW URINE OUTPUT THIS SHIFT, DR HERNDON UPDATED, WILL BE IN TO EVALUATE PT THIS MORNING. PT ON PROPOFOL @ 15 AND PRECEDEX @ 0.2, PT VERY DROWSY BUT AROUSABLE AND ABLE TO ANSWER YES/NO QUESTIONS. PRN FENTANYL ADEQUATE FOR PAIN MANAGEMENT.
--- NOTE | 2019-05-15 07:53 | NUR ---
DR GIORDANO AT THE BEDSIDE TO ASSESS PT. WILL RECHECK IONIZED CA.
--- NOTE | 2019-05-15 09:09 | NUR ---
PT CHANGED TO SIMV MODE: PS-7, P-5, FI0-25%. PROPOFOL PLACED ON STANDBY AND PT REMAINING CALM AT THIS TIME. RR LOW 20'S RANGE. TV'S- 650-700'S RANGE.
--- NOTE | 2019-05-15 12:59 | NUR ---
PT UPDATE: PT ALERT ENOUGH TO DO BEDSIDE SWALLOW EVALUATION. PT PASSED. PT ASSISTED WITH ICE CHIPS AND ICE WATER, HE REMAINS SLIGHTLY TOO WEAK IN COMBINATION WITH UE CONTRACTURES IN HANDS THAT ASSISTANCE WAS NEEDED WITH FLUIDS. LUNGS REMAIN CLEAR BUT DIMINISHED IN THE BILATERAL BASES. CONTINUES TO HAVE A WET, PRODUCTIVE COUGH. PT SWALLOWS SPUTUM.
--- NOTE | 2019-05-15 14:28 | NUR ---
1315-NOTED PT'S O2 SATURAION WENT DOWN LOW 80% ON 5LPM OF NC. PT WAS HAVING DIFFICULTY BREATHING. INCREASED O2 TO 7 LPM AND PLACED NC TO MOUTH SINCE PT IS MOSTLY MOUTH BREATHING. CALLED RT JULIEN TO START PT ON VENTURI MASK SINCE 02 SATURATION HAS INCREASED TO >90 BUT DOES NOT SUSTAIN OVER 90. PT LOOKS SLIGHTLY PURPLE. 1330-JULIEN RT IS STILL IN PT'S ROOM. PT WENT INTO FLUSHED PULMONARY EDEMA. DR. HERNDON WAS NOTIFIED. ORDERS RECEIVED. BIPAP WAS STARTED AT 12/7, BUR 8, FIO2 100% 1341-40MG LASIX IV GIVEN ORDERED. PT HAD DEFECATED AT THIS TIME WELL WITH WATERY, LOOSE DARK GREEN STOOL. AFTER PT WAS CLEANED, PT WAS STARTING TO BE MORE AND MORE CONFUSED AND AGITATED AND STILL ON BIPAP. PT STARTED PULLING OFF BIPAP & TUBINGS. BE MORE AND MORE CONFUSED. DR. HERNDON WAS AGAIN NOTIFIED. 1400-DR. HERNDON AT BEDSIDE. PRECEDEX WAS STARTED @ 0.6MCG/KG/HR. PT WAS MEDICATED WITH ATIVAN AND FENTANYL. 1445-PT IS STILL ON BIPAP FI02 NOW AT 35%. PT IS MORE CALM AT THIS TIME.
--- NOTE | 2019-05-15 15:15 | NUR ---
PT UPDATE: RESPIRATORY STATUS IMPROVED. PT TOLERATING BIPAP WELL, AND MORE ALERT AT THIS TIME. PT ABLE TO ANSWER SIMPLE YES/NO QUESTIONS, AND FOLLOW SIMPLE COMMANDS. BIPAP PRESSURES DECREASED TO 10/5, RATE-8, FI02-35%, WITH SATS IN THE MID 90% RANGE. NTG PASTE PLACED ON LT CW TO MAINTAIN LOW BP'S. BP'S IMPROVE AFTER DOSE OF LASIX AND PT IS DIURESING WELL.
--- NOTE | 2019-05-15 16:45 | NUR ---
SHIFT SUMMARY: PT IS SLIGHTLY DROWSY WITH USE OF TITRATED PRECEDEX, FOR BIPAP TOLERANCE. PT TAKEN OUT OF RESTRAINTS AT 1600, AFTER HE BECAME COOPERATIVE WITH BIPAP. PT BEING GIVEN A BIPAP BREAK AND ON 5L 02 VIA N/C, SATS 95%. NO C/O PAIN. PT ABLE TO MAKE NEEDS KNOWN. FOLLOWS COMMANDS AND ANSWERS QUESTIONS APPROPRIATLEY. LUNGS ARE CLEAR IN THE UPPER LOBES, BUT DIMINISHED W/EXP WHEEZES IN THE BILATERAL BASES. BREATHES SHALLOW, EVEN, AND UNLABORED AT REST. ABD SOFT/ROUND/NON-TENDER TO PALPATION. BT'S ACTIVE X4. PT REMAINS MOSTLY NPO, EXCEPT SMALL AMTS OF WATER. PT NEEDS CONTINUING EDUCATION ON PACING FOOD/FLUID. PT DURESED WELL (1350ML) AFTER 40MG LASIX IV.
--- NOTE | 2019-05-15 19:33 | NUR ---
REPORTED OFF TO ALEX DE SANTIAGO WHOM IS ASSUMING CARE OF THIS PT.
--- NOTE | 2019-05-15 22:24 | NUR ---
ASSUMED PT CARE AT 1915 PT IS RESTING IN BED WITH BIPAP IN PLACE. 03/03; FIO2 30%. PT ALERT AND ORIENTED AND ABLE TO MAKE NEEDS KNOWN. PRECEDEX GTT AT 0.5MCG/KG/HR. VS APPEAR STABLE AT THIS TIME. WILL CONTINUE TO MONITOR.
[2019-05-16 03:54] LABS: BASOPHILS ABSOLUTE AUTO 0.02 K/mm3 (0.00-0.23); BASOPHILS PERCENT AUTO 1 % (0-2); EOSINOPHILS ABSOLUTE AUTO 0.11 K/mm3 (0.00-0.68); EOSINOPHILS PERCENT AUTO 3 % (0-6); Hematocrit 31.5 % (37.0-53.0); Hemoglobin 10.5 g/dL (13.5-17.5); IMMATURE GRAN ABSOLUTE AUTO 0.02 K/mm3 (0.00-0.10); IMMATURE GRAN PERCENT AUTO 1 % (0-1); LYMPHOCYTES ABSOLUTE AUTO 0.59 K/mm3 (0.84-5.20); LYMPHOCYTES PERCENT AUTO 17 % (21-46); MONOCYTES ABSOLUTE AUTO 0.56 K/mm3 (0.16-1.47); MONOCYTES PERCENT AUTO 16 % (4-13); Mean Corpuscular HGB 35.6 pg (26.0-34.0); Mean Corpuscular HGB Conc 33.3 g/dL (31.5-36.5); Mean Corpuscular Volume 107 fL (80-100); Mean Platelet Volume 10.8 fL (9.1-12.4); NEUTROPHILS ABSOLUTE AUTO 2.24 K/mm3 (1.96-9.15); NEUTROPHILS PERCENT AUTO 63 % (41-73); Platelet Count 100 K/mm3 (150-400); RDW Coefficient Variation 14.1 % (11.7-14.2); RDW Standard Deviation 55.8 fL (35.1-46.3); Red Blood Cell Count 2.95 M/mm3 (4.30-5.90); White Blood Cell Count 3.54 K/mm3 (4.00-11.30)
[2019-05-16 04:07] LABS: Albumin, Blood 2.2 g/dL (3.4-5.0); Anion Gap 7 mmol/L (6-16); Blood Urea Nitrogen 17 mg/dL (8-24); Bun/Creatinine Ratio 22.5 (12.0-20.0); CO2, Blood 26 mmol/L (21-32); Calcium, Blood 7.8 mg/dL (8.5-10.1); Chloride, Blood 108 mmol/L (98-108); Creatinine, Blood 0.76 mg/dL (0.60-1.20); Glomerular Filtration Rate >60 (60-); Glucose, Blood 108 mg/dL (70-99); Phosphorus, Blood 2.8 mg/dL (2.5-4.9); Potassium, Blood 3.7 mmol/L (3.5-5.5); Sodium, Blood 141 mmol/L (136-145)
--- NOTE | 2019-05-16 05:09 | NUR ---
END OF SHIFT SUMMARY NO SIGNIFICANT CHANGES SINCE LAST ENTRY. PT TITRATED OFF PRECEDEX THIS AM. TAKEN OFF BIPAP AROUND 0200 FOR A BREAK. PT REMAINED ON RA UNTIL HE FELL ASLEEP AROUND 0400 WHERE HE WAS PLACED ON 2L VIA NC D/T OXYGEN SATURATIONS DIPPING TO THE 80'S. PT REMAINS ALERT AND ORIENTED AND ABLE TO MAKE NEEDS KNOWN. VSS. CALL LIGHT WITHIN REACH. WILL CONTINUE TO MONITOR UNTIL REPORT IS HANDED OFF TO ONCOMING RN.
--- NOTE | 2019-05-16 06:29 | NUR ---
PT HAS A NON-SUSTAINED RUN OF VTACH. ASYMPTOMATIC. ORDERS RETRIEVED FOR STAT MAGNESIUM LEVEL.
--- NOTE | 2019-05-16 07:30 | NUR ---
AM ASSESSMENT: PT IS ALERT AND ORIENTED TO SELF/PLACE/FOLLOWS DIRECTIONS. SPEECH IS CLEARER AND EASIER TO UNDERSTAND TODAY. PT REMAINS WEAK, BUT ABLE TO MOVE ALL EXTREMITIES. WILL HAVE PT/OT WORK WITH PT TODAY, NOW THAT RESP STATUS HAS IMPROVED. PT DENIES ANY PAIN. LUNGS ARE CLEAR BUT DIMINISHED/TIGHT, WITH EXP WHEEZES IN THE BILATERAL BASES. SPO2 >90% ON RA. HR REGULAR, SR-70'S RANGE. GENERALIZED/DEPENDENT EDEMA, SEE NN. NS-TKO. GARNER TEMP PROBE DRAINING YELLOW COLORED URINE TO GRAVITY. PT HAS GOOD DIURESIS WITH LASIX IVP. ABD SOFT/ROUND/NON-TENDER TO PALPATION. BT'S ACTIVE X4 QAUDS. NO BM YET THIS SHIFT. WILL ATTEMPT TO ADVANCE DIET TO DAY, HOWEVER, WOULD LIKE TO OBTAIN A SPEECH EVAL FIRST FOR CONCERNS FOR SILENT ASPIRATION.
--- NOTE | 2019-05-16 09:57 | NUR ---
SPEECH THERAPY: SPEECH INTO ASSESS PT. PT NORMALLY WEARS DENTURES, THEREFORE WILL ORDER A [facility] SOFT DIET. NO MIXED CONSISTANCIES/NO STRAWS.
--- NOTE | 2019-05-16 10:54 | NUR ---
PT/OT IN WORKING WITH PT. SEE THERAPY NOTES. PT REPORTS FENTANYL HELPFUL IN REDUCING PAIN TO A TOLERABLE LEVEL 11/06.
--- NOTE | 2019-05-16 11:30 | NUR ---
DR BILLS AT THE BEDSIDE TO ASSESS PT. SEE NEW ORDERS.
--- NOTE | 2019-05-16 13:30 | NUR ---
PT UPDATE: PT REPORTS CONTINUED RT KNEE PAIN. WILL OBTAIN XRAY AND GIVE PAIN MEDS WHEN ORDERED.
--- NOTE | 2019-05-16 16:20 | NUR ---
SHIFT SUMMARY: PT REMAINS ALERT AND ORIENTED T/O SHIFT. DID WELL WORKING WITH PT/OT TODAY. NEEDS TO CONT WITH THERAPY HE IS QUITE DECONDITIONED. PT'S MAIN C/O TODAY WAS RT KNEE PAIN (NEW) R/T FALL APPROX 1 WEEK AGO. RT KNEE XRAYED. PT CURRENTLY HAS 10/1O PAIN DESPITE TRAMADOL GIVEN EARLIER. 1 TIME DOSE OF FENTANYL 25 MCG IVP FOR PAIN MANAGEMENT. PT IS NOW MEDICAL FLOOR STATUS AND WILL TNX WHEN BED AVAILABLE. LUNGS REMAIN CLEAR BUT DIMINISHED IN THE BASES. LESS COUGHING AND SPUTUM PRODUCTION TODAY. SPO2 MID 90% ON 2L 02 VIA N/C. HR REMAINS REG, SR-70-80'S RANGE WITH 1ST DEGREE AVB AND PROLONGED QT/QTC. PT GIVEN 2GM OF MAGNESIUM IVPB FOR LOW LEVEL. PT STILL HAS RECTAL TUBE WITH SMALL AMT OF LOOSE BROWN STOOL. GOOD URINE OUTPUT PER GARNER TEMP PROBE WITH USE OF LASIX IVP.
--- NOTE | 2019-05-16 18:50 | NUR ---
ATTEMPTED TO CALL REPORT TO 305 NURSE. ROOM IS STILL DIRTY AND RN REPORTS THEY WILL CALL FOR REPORT WHEN THE ROOM IS CLEAN.
--- NOTE | 2019-05-16 19:29 | NUR ---
REPORTED OFF TO ALEX OSBORNE WHOM WILL ASSUME CARE OF PT UNTIL HE TRANSFERS NEW ROOM.
--- NOTE | 2019-05-16 22:20 | NUR ---
REPORT TO Lexie AHUMADA RN W PT STATUS. PT HAS BEEN AWAKE, WATCHING TV. SWALLOWED HS MEDS WO DIFF. 2100ML OF CL YELLOW URINE FROM GARNER. PT IS USING 2LNC & DENIES SOB. PT SEVERAL TIMES HAS MENTIONED THAT HE IS GLAD TO BE GOING TO [facility] FOR REHAB. TRANSPORT BY BED W PERSONAL BELONGINGS.
[2019-05-17 05:17] LABS: BASOPHILS ABSOLUTE AUTO 0.02 K/mm3 (0.00-0.23); BASOPHILS PERCENT AUTO 1 % (0-2); EOSINOPHILS PERCENT AUTO 3 % (0-6); Hematocrit 30.9 % (37.0-53.0); Hemoglobin 10.2 g/dL (13.5-17.5); IMMATURE GRAN ABSOLUTE AUTO 0.02 K/mm3 (0.00-0.10); IMMATURE GRAN PERCENT AUTO 1 % (0-1); LYMPHOCYTES ABSOLUTE AUTO 0.69 K/mm3 (0.84-5.20); LYMPHOCYTES PERCENT AUTO 20 % (21-46); MONOCYTES ABSOLUTE AUTO 0.68 K/mm3 (0.16-1.47); MONOCYTES PERCENT AUTO 20 % (4-13); Mean Corpuscular HGB 35.1 pg (26.0-34.0); Mean Corpuscular Volume 106 fL (80-100); Mean Platelet Volume 11.1 fL (9.1-12.4); NEUTROPHILS ABSOLUTE AUTO 1.92 K/mm3 (1.96-9.15); NEUTROPHILS PERCENT AUTO 56 % (41-73); Platelet Count 114 K/mm3 (150-400); RDW Coefficient Variation 13.9 % (11.7-14.2); RDW Standard Deviation 54.5 fL (35.1-46.3); Red Blood Cell Count 2.91 M/mm3 (4.30-5.90); White Blood Cell Count 3.43 K/mm3 (4.00-11.30)
--- NOTE | 2019-05-17 05:43 | NUR ---
SHIFT SUMMARY PT TRANSFERRED FROM ICU TO RM 305 APPROX 2230. C/O PAIN IN R KNEE WITH ANY MOVEMENT OR TOUCH. MEDICATED PER EMAR FOR PAIN X2. GARNER DRAINING. RECTAL TUBE DID NOT REALLY DRAIN MORE THAN WAS ALREADY IN BAG, APPROX 100. HE SAID HE DIDN'T SLEEP MORE THAN A TOTAL OF 30 MIN, BUT SAID HE DID DOZE ON AND OFF T/O NIGHT. 2L O2 NC HE DID GET SOB C TURNING/EXERTION. CALL LIGHT IN REACH.
[2019-05-17 05:44] LABS: Magnesium, Blood 1.8 mg/dL (1.6-2.4)
[2019-05-17 05:45] LABS: Anion Gap 7 mmol/L (6-16); Blood Urea Nitrogen 14 mg/dL (8-24); Bun/Creatinine Ratio 17.6 (12.0-20.0); CO2, Blood 28 mmol/L (21-32); Calcium, Blood 8.2 mg/dL (8.5-10.1); Chloride, Blood 104 mmol/L (98-108); Glomerular Filtration Rate >60 (60-); Glucose, Blood 105 mg/dL (70-99); Potassium, Blood 3.6 mmol/L (3.5-5.5); Sodium, Blood 139 mmol/L (136-145)
--- NOTE | 2019-05-17 10:24 | NUR ---
RECTAL TUBE AND GARNER CATHETER REMOVED PER PHYSICIAN ORDERS.
--- NOTE | 2019-05-17 14:59 | NUR ---
PATIENT'S BP 180/92. CALLED DR SHAW AT [id number] TO INFORM HIM AND ASK FOR AN ANTIHYPERTENSIVE. DR SHAW TO PLACE ORDERS IN EMAR.
--- NOTE | 2019-05-17 15:47 | NUR ---
SHIFT SUMMARY THE PATIENT HAS HAD A GOOD DAY DESPITE THE CHONIC PAIN IN HIS RIGHT KNEE. HE IS PLEASANT AND COOPERATIVE WITH STAFF. BP HAS BEEN ELEVATED AND A NEW ORDER PLACED BY DR SHAW FOR IV HYDRALAZINE; WILL RECHECK BP. PATIENT HAS BEEN CONTINENT OF B/B SINCE THE GARNER AND RECTAL TUBE REMOVAL. THERE HAVE BEEN NO OTHER CHANGES TO REPORT ON AT THIS TIME.
[2019-05-18 04:52] LABS: Anion Gap 9 mmol/L (6-16); Blood Urea Nitrogen 12 mg/dL (8-24); Bun/Creatinine Ratio 16.7 (12.0-20.0); CO2, Blood 27 mmol/L (21-32); Calcium, Blood 8.6 mg/dL (8.5-10.1); Chloride, Blood 102 mmol/L (98-108); Creatinine, Blood 0.72 mg/dL (0.60-1.20); Glomerular Filtration Rate >60 (60-); Glucose, Blood 95 mg/dL (70-99); Sodium, Blood 138 mmol/L (136-145)
--- NOTE | 2019-05-18 06:15 | NUR ---
SHIFT SUMMARY: PATIENT CONTINUES TO REPORT PAIN IN R KNEE /. TRAMADOL 100MG IS EFFECTIVE FOR PAIN CONTROL PER PT. RATING PAIN8/10 AT REASESSMENT, PATIENT IS SMILING AND STATES AT 8/10 MEDICATION WAS EFFECTIVE. INC. OF URINE AT THE BEGINING OF SHIFT BUT THEN WAS ABLE TO USE THE URINAL INDEPENDANTLY. BED ALARM IS ON FOR SAEFTY AND CALL BARROS IS WITHINREACH.
--- NOTE | 2019-05-18 18:44 | NUR ---
SHIFT SUMMARY- PT HAS HAD NO ACUTE CHANGE SINCE ASSUMING CARE AT 1645. PT MEDICATED FOR PAIN ONCE WITH PRN TRAMADOL. PT STATED PAIN WENT FROM A 10/10 TO A 7/10 WHICH IS MANAGEABLE FOR THIS PT.
[2019-05-19] MEDS ORDERED: ACET325 PO (11:24)
[2019-05-19] MEDS ORDERED: ASPI81CH PO (11:24)
[2019-05-19] MEDS ORDERED: CLOP75 PO (11:25)
[2019-05-19] MEDS ORDERED: Lipitor20 MG PO (11:25)
[2019-05-19] MEDS ORDERED: FOLI1 PO (11:25)
[2019-05-19] MEDS ORDERED: METO25 PO (11:25)
[2019-05-19] MEDS ORDERED: TORSE20 PO (11:26)
[2019-05-19] MEDS ORDERED: POTCHL20ER PO (11:26)
[2019-05-19] MEDS ORDERED: B-1100 M1 PO (11:26)
[2019-05-19] MEDS ORDERED: TRAM50 PO (11:27)
--- NOTE | 2019-05-19 11:28 | NUR ---
SPOKE WITH CHAITANYA AT [facility] ADMISSIONS, PT OK FOR DISCHARGE TO [facility]. ORDERS FAXED TO [facility] AND [facility] TRANSPORT SCHEDULED FOR 1300.
--- NOTE | 2019-05-19 12:28 | NUR ---
CALLED REPORT TO [facility] FOR THE PATIENT PRIOR TO TRANSFER. NO ACUTE CONCERNS AT THIS TIME. PATIENT IS SET FOR TRANSPORT.
--- NOTE | 2019-05-19 13:15 | NUR ---
PATIENT TO TRANSPORT VAN WITH [facility]. IV AND POEWRGLIDE WERE REMOVED. PTIENT PLEASANT. HIS FAMILY/FRIEND WAS AWARE THAT HE WAS LEAVING THEY WERE ABLE TO BRING HIM SOME SHOES.
== END 2019-05-19 13:11 | DRG 280 ==
LOC: ER 18:16 → PCU 23:53 → ICUE 05-11 00:04 → ER 05-11 00:04 → MEDS 05-11 00:04 → PCU 05-11 00:04 → ER 05-11 00:09 → MHTC 05-11 00:09 → PCU 05-11 00:20 → ICUE 05-11 11:09 → PCU 05-11 11:09 → ICUE 05-11 11:09 → ICUW 05-11 13:02 → ICUE 05-11 13:02 → ICUW 05-11 13:03 → ICUE 05-16 11:45 → MEDS 05-16 22:46 → ENPENDDIS 05-19 11:11 → MEDS 05-19 13:11 → PCU 05-19 13:11 → MHTC 05-19 13:11
PROVIDERS: Emergency Medicine; Family Medicine; Hospitalist; Internal Medicine; Internal Medicine Critical Care Medicine; ADMIT Internal Medicine
PROC: 0BH17EZ Insertion of Endotracheal Airway into Trachea, Via Natural or Artificial Opening (ICD-10-PCS; principal; 2019-05-11)
PROC: 5A1945Z Respiratory Ventilation, 24-96 Consecutive Hours (ICD-10-PCS; 2019-05-11)
PROC: 3E02340 Introduction of Influenza Vaccine into Muscle, Percutaneous Approach (ICD-10-PCS; 2019-05-11)
DX: I11.0 Hypertensive heart disease with heart failure (principal); J69.0 Pneumonitis due to inhalation of food and vomit; I21.A1 Myocardial infarction type 2; I50.31 Acute diastolic (congestive) heart failure; M62.82 Rhabdomyolysis; D61.818 Other pancytopenia; F17.210 Nicotine dependence, cigarettes, uncomplicated; W18.30XA Fall on same level, unspecified, initial encounter; Y92.9 Unspecified place or not applicable; E87.5 Hyperkalemia; E86.0 Dehydration; H10.9 Unspecified conjunctivitis; Z23 Encounter for immunization; J44.9 Chronic obstructive pulmonary disease, unspecified; E87.6 Hypokalemia; D69.6 Thrombocytopenia, unspecified; E63.9 Nutritional deficiency, unspecified; E83.51 Hypocalcemia; K21.9 Gastro-esophageal reflux disease without esophagitis; F10.10 Alcohol abuse, uncomplicated; Z68.30 Body mass index [BMI] 30.0-30.9, adult
CPT/HCPCS: 31500; 31720; 36415; 36600; 51702; 70450; 71045; 71046; 71260; 73562-RT; 80048; 80053; 80069; 81001; 82140; 82330; 82550; 82553; 82728; 82803; 82947; 83540; 83550; 83605; 83690; 83735; 83880; 84100; 84484; 85025; 85027; 85610; 85730; 87040; 87070; 87086; 87205; 90686; 92610; 93005; 93010; 93306; 94002; 94003; 94660; 96361; 96365; 96366; 96375; 96376; 97110; 97162; 97166; 97530; 99285-25; A9270; C1751; C9113; G0008; G0480; J0360; J0456; J0610; J0696; J1644; J1650; J1940; J1956; J2060; J2704; J3010; J3411; J3475; J3480; J7030; J7050; J7060; Q9967

== ENCOUNTER 2019-05-20 16:20 | Emergency (ER) | payer MEDICARE, OTHER ==
[~2019-05-20] VITALS: Ht 167.6 cm; Wt 81.7 kg
[~2019-05-20 16:20] MED LIST changes: +ACET325 PO; +ASPI81CH PO; +B-1100 M1 PO; +CLOP75 PO; +FOLI1 PO; +Lipitor20 MG PO; +METO25 PO; +POTCHL20ER PO; +TORSE20 PO; +TRAM50 PO
== END 2019-05-20 18:40 | disposition home or self-care (01) ==
LOC: ER 16:20
DX: R45.1 Restlessness and agitation (principal); I10 Essential (primary) hypertension; E78.5 Hyperlipidemia, unspecified; Z79.82 Long term (current) use of aspirin; Z79.899 Other long term (current) drug therapy
CPT/HCPCS: 99283

== ENCOUNTER 2025-01-29 10:19 | Emergency (ER) | payer MEDICARE, OTHER ==
[~2025-01-29] VITALS: Ht 167.6 cm; Wt 90.7 kg
[2025-01-29 11:01] LABS: BASOPHILS ABSOLUTE AUTO 0.01 K/mm3 (0.00-0.23); BASOPHILS PERCENT AUTO 0 % (0-2); EOSINOPHILS ABSOLUTE AUTO 0.06 K/mm3 (0.00-0.68); EOSINOPHILS PERCENT AUTO 1 % (0-6); Hematocrit 35.4 % (37.0-53.0); Hemoglobin 12.8 g/dL (13.5-17.5); IMMATURE GRAN ABSOLUTE AUTO 0.02 K/mm3 (0.00-0.10); IMMATURE GRAN PERCENT AUTO 0 % (0-1); LYMPHOCYTES ABSOLUTE AUTO 0.88 K/mm3 (0.84-5.20); LYMPHOCYTES PERCENT AUTO 14 % (21-46); MONOCYTES ABSOLUTE AUTO 0.58 K/mm3 (0.16-1.47); MONOCYTES PERCENT AUTO 9 % (4-13); Mean Corpuscular HGB Conc 36.2 g/dL (31.5-36.5); Mean Corpuscular Volume 104 fL (80-100); NEUTROPHILS ABSOLUTE AUTO 4.86 K/mm3 (1.96-9.15); NEUTROPHILS PERCENT AUTO 76 % (41-73); NRBC ABSOLUTE 0.00 K/mm3 (0.00-0.02); NRBC Auto 0.0 /100 WBC (0.0-0.2); Platelet Count 167 K/mm3 (150-400); RDW Coefficient Variation 13.3 % (11.7-14.2); RDW Standard Deviation 51.1 fL (35.1-46.3)
[2025-01-29 11:40] LABS: Alanine Aminotransfer (ALT/SGP 27.0 U/L (12-78); Albumin, Blood 3.2 g/dL (3.4-5.0); Albumin/Globulin Ratio 0.7 (0.8-1.8); Anion Gap 12.0 mmol/L (3-11); Aspartate Aminotrans (AST/SGOT 32.0 U/L (12-37); Bilirubin, Total 2.3 mg/dL (0.1-1.0); Blood Urea Nitrogen 28.0 mg/dL (8-24); CO2, Blood 24.0 mmol/L (21-32); Calcium, Blood 9.2 mg/dL (8.5-10.1); Chloride, Blood 106.0 mmol/L (98-108); Creatinine, Blood 1.03 mg/dL (0.60-1.20); Globulin, Blood 4.3 g/dL (2.2-4.0); Glucose, Blood 146.0 mg/dL (70-99); Potassium, Blood 3.5 mmol/L (3.5-5.5); Sodium, Blood 138.0 mmol/L (136-145); Thyroid Stimulating Hormone 2.12 uIU/mL (0.360-4.800); Total Protein, Blood 7.5 g/dL (6.4-8.2)
[2025-01-29] MEDS ORDERED: QUETIAPINE FUMA25 MG PO (12:20)
[2025-01-29] MEDS ORDERED: PLAVIX75 MG PO (12:21)
[2025-01-29] MEDS ORDERED: NS 1,000 ML IV SCH (13:15)
[2025-01-29 14:42] LABS: Source, Urine Voided
[2025-01-29 14:48] LABS: Bilirubin, Urine Neg (Neg); Color, Urine Yellow (P-Yellow); Glucose Qualitative, Urine Neg (Neg); Ketones, Urine 1+ (Neg); Leukocyte Esterase, Urine 1+ (Neg); Protein, Urine 3+ (Neg); Specific Gravity, Urine 1.020 (1.003-1.022); Urobilinogen, Urine 2+ (Normal)
[2025-01-29 15:02] LABS: Red Blood Cells, Urine 0-2 /hpf (0-2); White Blood Cells, Urine 0-2 /hpf (0-5)
[2025-01-29 19:15] VITALS: BP 166/75
== END 2025-01-29 19:40 | disposition home or self-care (01) ==
LOC: ER 10:19
PROVIDERS: Emergency Medicine
DX: R53.1 Weakness (principal); I25.2 Old myocardial infarction; E78.5 Hyperlipidemia, unspecified; I10 Essential (primary) hypertension; Z79.82 Long term (current) use of aspirin; Z79.02 Long term (current) use of antithrombotics/antiplatelets; Z79.899 Other long term (current) drug therapy
CPT/HCPCS: 71046; 80053; 81001; 83880; 84443; 84484; 85025; 87086; 93005; 93010; 96360; 99285-25; J7030

== ENCOUNTER 2025-02-04 20:18 | Inpatient (IN) | payer MEDICARE, OTHER ==
[~2025-02-04] VITALS: Ht 167.6 cm; Wt 94.8 kg
[~2025-02-04 20:18] MED LIST changes: +PLAVIX75 MG PO; +QUETIAPINE FUMA25 MG PO
[2025-02-04 21:08] LABS: BASOPHILS ABSOLUTE AUTO 0.03 K/mm3 (0.00-0.23); BASOPHILS PERCENT AUTO 0 % (0-2); EOSINOPHILS ABSOLUTE AUTO 0.00 K/mm3 (0.00-0.68); EOSINOPHILS PERCENT AUTO 0 % (0-6); Hematocrit 34.1 % (37.0-53.0); Hemoglobin 12.0 g/dL (13.5-17.5); IMMATURE GRAN ABSOLUTE AUTO 0.19 K/mm3 (0.00-0.10); IMMATURE GRAN PERCENT AUTO 1 % (0-1); LYMPHOCYTES ABSOLUTE AUTO 0.76 K/mm3 (0.84-5.20); LYMPHOCYTES PERCENT AUTO 4 % (21-46); MONOCYTES ABSOLUTE AUTO 1.32 K/mm3 (0.16-1.47); MONOCYTES PERCENT AUTO 6 % (4-13); Mean Corpuscular HGB Conc 35.2 g/dL (31.5-36.5); Mean Corpuscular Volume 106 fL (80-100); NEUTROPHILS ABSOLUTE AUTO 19.37 K/mm3 (1.96-9.15); NEUTROPHILS PERCENT AUTO 89 % (41-73); NRBC ABSOLUTE 0.00 K/mm3 (0.00-0.02); NRBC Auto 0.0 /100 WBC (0.0-0.2); Platelet Count 328 K/mm3 (150-400); RDW Coefficient Variation 13.2 % (11.7-14.2); RDW Standard Deviation 51.5 fL (35.1-46.3)
[2025-02-04] MEDS ORDERED: Metoprolol Tartrate 1 MG/ML 5 ML VIAL IV PRN (21:15)
[2025-02-04 21:32] LABS: Magnesium, Blood 1.8 mg/dL (1.6-2.4); Thyroid Stimulating Hormone 1.81 uIU/mL (0.360-4.800)
[2025-02-04 21:33] LABS: Alanine Aminotransfer (ALT/SGP 52.0 U/L (12-78); Albumin, Blood 2.7 g/dL (3.4-5.0); Albumin/Globulin Ratio 0.7 (0.8-1.8); Anion Gap 16.0 mmol/L (3-11); Aspartate Aminotrans (AST/SGOT 68.0 U/L (12-37); Bilirubin, Total 1.5 mg/dL (0.1-1.0); Blood Urea Nitrogen 54.0 mg/dL (8-24); CO2, Blood 22.0 mmol/L (21-32); Calcium, Blood 9.2 mg/dL (8.5-10.1); Chloride, Blood 101.0 mmol/L (98-108); Creatinine, Blood 1.39 mg/dL (0.60-1.20); Globulin, Blood 4.1 g/dL (2.2-4.0); Glucose, Blood 180.0 mg/dL (70-99); Potassium, Blood 3.6 mmol/L (3.5-5.5); Sodium, Blood 135.0 mmol/L (136-145); Total Protein, Blood 6.8 g/dL (6.4-8.2)
[2025-02-04 22:25] LABS: Influenza A, PCR NEGATIVE (NEGATIVE); Influenza B, PCR NEGATIVE (NEGATIVE); Resp Syncytial Virus, PCR NEGATIVE (NEGATIVE); SARS-Cov-2 (COVID-19) PCR, MMC NEGATIVE (NEGATIVE)
[2025-02-04] MEDS ORDERED: Amiodarone HCl 450 MG in NS 250 ML IV SCH (22:35)
[2025-02-05] VITALS (23 sets, daily range): BP systolic 100–140; BP diastolic 42–100
[2025-02-05 01:18] LABS: pH Blood Venous 7.42 (7.34-7.37)
[2025-02-05 04:33] LABS: BASOPHILS ABSOLUTE AUTO 0.02 K/mm3 (0.00-0.23); BASOPHILS PERCENT AUTO 0 % (0-2); EOSINOPHILS ABSOLUTE AUTO 0.01 K/mm3 (0.00-0.68); EOSINOPHILS PERCENT AUTO 0 % (0-6); Hematocrit 31.3 % (37.0-53.0); Hemoglobin 10.9 g/dL (13.5-17.5); IMMATURE GRAN ABSOLUTE AUTO 0.10 K/mm3 (0.00-0.10); IMMATURE GRAN PERCENT AUTO 1 % (0-1); LYMPHOCYTES ABSOLUTE AUTO 1.12 K/mm3 (0.84-5.20); LYMPHOCYTES PERCENT AUTO 7 % (21-46); MONOCYTES ABSOLUTE AUTO 1.18 K/mm3 (0.16-1.47); MONOCYTES PERCENT AUTO 7 % (4-13); Mean Corpuscular HGB Conc 34.8 g/dL (31.5-36.5); Mean Corpuscular Volume 106 fL (80-100); NEUTROPHILS ABSOLUTE AUTO 13.62 K/mm3 (1.96-9.15); NEUTROPHILS PERCENT AUTO 85 % (41-73); NRBC ABSOLUTE 0.00 K/mm3 (0.00-0.02); NRBC Auto 0.0 /100 WBC (0.0-0.2); Platelet Count 279 K/mm3 (150-400); RDW Coefficient Variation 13.1 % (11.7-14.2); RDW Standard Deviation 50.6 fL (35.1-46.3)
[2025-02-05 05:23] LABS: Ethanol (Alcohol), Blood, Med <3 mg/dL
[2025-02-05] MEDS ORDERED: Lidocaine 2% Jelly Uro-Jet UR ONE (05:25)
[2025-02-05] MEDS ORDERED: CefTRIAXone Sodium 1,000 MG in NS 100 ML IV SCH (05:39)
[2025-02-05 05:53] LABS: Alanine Aminotransfer (ALT/SGP 45 U/L (12-78); Albumin, Blood 2.3 g/dL (3.4-5.0); Albumin/Globulin Ratio 0.7 (0.8-1.8); Anion Gap 9 mmol/L (3-11); Aspartate Aminotrans (AST/SGOT 57 U/L (12-37); Bilirubin, Total 1.3 mg/dL (0.1-1.0); Blood Urea Nitrogen 54 mg/dL (8-24); CO2, Blood 27 mmol/L (21-32); Calcium, Blood 8.3 mg/dL (8.5-10.1); Chloride, Blood 104 mmol/L (98-108); Creatinine, Blood 1.24 mg/dL (0.60-1.20); Globulin, Blood 3.5 g/dL (2.2-4.0); Glucose, Blood 146 mg/dL (70-99); Potassium, Blood 3.3 mmol/L (3.5-5.5); Sodium, Blood 137 mmol/L (136-145); Total Protein, Blood 5.8 g/dL (6.4-8.2)
[2025-02-05 05:58] LABS: Prostate Specific Antigen 2.870 ng/mL (0.000-4.000)
[2025-02-05 06:39] LABS: Source, Urine Foley catheter
[2025-02-05 06:59] LABS: Bilirubin, Urine Neg (Neg); Color, Urine Yellow (P-Yellow); Glucose Qualitative, Urine Neg (Neg); Ketones, Urine Neg (Neg); Leukocyte Esterase, Urine Neg (Neg); Protein, Urine 2+ (Neg); Specific Gravity, Urine 1.015 (1.003-1.022); Urobilinogen, Urine 1+ (Normal)
[2025-02-05 07:06] LABS: Red Blood Cells, Urine 0-2 /hpf (0-2); White Blood Cells, Urine 0-2 /hpf (0-5)
[2025-02-05] MEDS ORDERED: Mag Sulfate 1 GM/D5% 100ML 100 ML IV STA (07:22)
[2025-02-05] MEDS ORDERED: Dose Adjust by Pharmacy XX STA ×3 (09:10→21:48)
[2025-02-05 09:17] LABS: pH Blood Venous 7.34 (7.34-7.37)
[2025-02-05 09:28] LABS: U Amphetamine Screen Not Detected; U Barbituate Screen Not Detected; U Benzodiazapine Screen Not Detected; U Methamphetamine Screen Not Detected
[2025-02-05 09:29] LABS: U Buprenorphine Screen Not Detected; U Cannabinoids Screen Not Detected; U Cocaine Screen Not Detected; U Methadone Screen Not Detected; U Opiates Screen Not Detected; U Oxycodone Screen Not Detected; U Phencyclidine Screen Not Detected
[2025-02-05] MEDS ORDERED: NS 250 ML IV PRN (09:50)
[2025-02-05 10:06] LABS: Prothrombin Time Results 14.0 Sec (9.7-11.5)
[2025-02-05] MEDS ORDERED: Miconazole Nitrate 2% 85 GM PWD TOP PRN (10:20)
[2025-02-05] MEDS ORDERED: ZINC OXIDE/PETROLATUM, YELLOW 1 APPLIC/71 GM PASTE TOP PRN (10:20)
[2025-02-05] MEDS ORDERED: Albuterol 2.5 MG/3 ML VIAL INH PRN (11:55)
[2025-02-05] MEDS ORDERED: Ipratropium/Albuterol SulF 2.5-0.5MG/3 ML Amp INH PRN (12:00)
[2025-02-05] MEDS ORDERED: Ipratropium/Albuterol SulF 2.5-0.5MG/3 ML Amp INH ONE (12:00)
[2025-02-05] MEDS ORDERED: Heparin Sodium,Porcine/0.5 NS 500 ML IV SCH (13:00)
--- NOTE | 2025-02-05 14:45 | NUR ---
WHEN ROLLING PATIENT FOR BED CHANGE, PATIENT APPEARED TO BE IN PAIN, GRIMMACING AND MOANING. PAIN TO BUTTOCKS (SEE SKIN ASSESSMENTS) .CALLED PROVIDER TO DISCUSS. PROVIDER WILL COME TO BEDSIDE TO ASSESS PATIENT.
--- NOTE | 2025-02-05 16:03 | NUR ---
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 CALLED PROVIDER TO DISCUSS.
[2025-02-05] MEDS ORDERED: FentaNYL Citrate 50 MCG/ML 2 ML Injection IV PRN (16:55)
--- NOTE | 2025-02-05 17:45 | NUR ---
SHIFT SUMMARY; ASSUMED CARE AT 0700 WITH QUEENIE GRANT RN. RESPONDS TO PAINFUL STIMULI ONLY WHEN ASSUMING CARE. MOANS WHEN MOVED. SATS MID 80'S WHEN ROLLED IN BED. PLACED ON HIGH FLOW CANNULA AT 10L FOR SATS >94%. BUTTUX AND BACK OF UPPER THIGHS EXCORIATED, PHOTOS IN CHARGE. WOUND CARE PER PROTOCOL. ZINC APPLIED SEVERAL TIMES, q2 TURNS, ON DRY FLOW. GARNER INPLACE DRAINING TO GRAVITY. AMIO GTT INFUSING AT 16.7ML/HR. HEPARIN GTT STARTED PER EMAR AT 15UNIT/KG. GRADUALLY WAKENS DURING SHIFT AND IS ABLE TO ANSWER SOME QUESTIONS. ORIENTED TO SELF AND PLACE. APPEARS WEAK AND MINIMALLY MOVES EXTREMETIES WHEN ASKED. SPOKE WITH FRIEND ARIS WHO STATED SHE FOUND HIM AT HOME IN A WHEELCHAIR THAT HE HAD BEEN IN FOR 6 DAYS. STATES IS A HEAVY DRINKER BUT LAST DRINK WAS 01/29, HE HAD NO ACCESS TO ALCOHOL PER ARIS FROM 01/29-ADMIT. SHE STATES HER AND HER DAUGHTER DO HIS SHOPPING FOR HIM HE HAS BEEN UNABLE TO LEAVE HIS APARTMENT. DISCUSSED PAIN MANAGEMENT WITH PROVIDER AND WILL MEDICATE PER EMAR. 02 DECREASED TO 6L AT END OF SHIFT AND SATS MAINTAINED 96%. VSS, WILL CONINUE TO MONITOR AND TREAT UNTIL REPORT GIVEN TO NOC SHIFT RN TO ASSUME CARE.
[2025-02-06] VITALS (18 sets, daily range): BP systolic 98–166; BP diastolic 48–96
[2025-02-06 04:16] LABS: BASOPHILS ABSOLUTE AUTO 0.02 K/mm3 (0.00-0.23); BASOPHILS PERCENT AUTO 0 % (0-2); EOSINOPHILS ABSOLUTE AUTO 0.07 K/mm3 (0.00-0.68); EOSINOPHILS PERCENT AUTO 1 % (0-6); Hematocrit 29.5 % (37.0-53.0); Hemoglobin 10.1 g/dL (13.5-17.5); IMMATURE GRAN ABSOLUTE AUTO 0.08 K/mm3 (0.00-0.10); IMMATURE GRAN PERCENT AUTO 1 % (0-1); LYMPHOCYTES ABSOLUTE AUTO 1.14 K/mm3 (0.84-5.20); LYMPHOCYTES PERCENT AUTO 11 % (21-46); MONOCYTES ABSOLUTE AUTO 0.68 K/mm3 (0.16-1.47); MONOCYTES PERCENT AUTO 6 % (4-13); Mean Corpuscular HGB Conc 34.2 g/dL (31.5-36.5); Mean Corpuscular Volume 107 fL (80-100); NEUTROPHILS ABSOLUTE AUTO 8.59 K/mm3 (1.96-9.15); NEUTROPHILS PERCENT AUTO 81 % (41-73); NRBC ABSOLUTE 0.00 K/mm3 (0.00-0.02); NRBC Auto 0.0 /100 WBC (0.0-0.2); Platelet Count 272 K/mm3 (150-400); RDW Coefficient Variation 13.1 % (11.7-14.2); RDW Standard Deviation 50.9 fL (35.1-46.3)
[2025-02-06 04:47] LABS: Alanine Aminotransfer (ALT/SGP 50.0 U/L (12-78); Albumin, Blood 2.1 g/dL (3.4-5.0); Albumin/Globulin Ratio 0.6 (0.8-1.8); Anion Gap 6.0 mmol/L (3-11); Aspartate Aminotrans (AST/SGOT 65.0 U/L (12-37); Bilirubin, Total 0.8 mg/dL (0.1-1.0); Blood Urea Nitrogen 46.0 mg/dL (8-24); CO2, Blood 30.0 mmol/L (21-32); Calcium, Blood 7.9 mg/dL (8.5-10.1); Chloride, Blood 107.0 mmol/L (98-108); Creatinine, Blood 1.08 mg/dL (0.60-1.20); Globulin, Blood 3.4 g/dL (2.2-4.0); Glucose, Blood 118.0 mg/dL (70-99); Potassium, Blood 3.7 mmol/L (3.5-5.5); Sodium, Blood 139.0 mmol/L (136-145); Total Protein, Blood 5.5 g/dL (6.4-8.2)
[2025-02-06] MEDS ORDERED: Dose Adjust by Pharmacy XX STA (05:22)
--- NOTE | 2025-02-06 06:06 | NUR ---
SHIFT SUMMARY PT HAS TOLERATED SHIFT WELL WITH NO SIGNIFICANT EVENTS OVERNIGHT. PT IS A&O X 4 THROUGHOUT NIGHT. PT ABLE TO EXPRESS NEEDS AND PRIMARILY EXPRESSES A NEED FOR WATER THROUGHOUT NIGHT. PT WAS INFORMED OF LASIX BEING STARTED IN MORNING AND THAT HAVING TOO MUCH FLUID MAY NOT BE HELPFUL. PT IS AGREEABLE TO USE SWABS AT THIS TIME. PT HAD 2 BOWEL MOVEMENTS OVERNIGHT. PT IS CURRENTLY RESTING COMFORTABLY IN BED. WILL CONTINUE TO MONITOR UNTIL REPORT PASSED TO DAY SHIFT TEAM.
[2025-02-06] MEDS ORDERED: HYDROcodone 5-APAP 325 TAB PO PRN (09:30)
[2025-02-06] MEDS ORDERED: Lactobacil 2-S.Thermo-Bifido 1 1 Cap PO SCH (11:00)
[2025-02-06] MEDS ORDERED: Enoxaparin 100 MG/ML 1ML SYR SC SCH (11:00)
--- NOTE | 2025-02-06 17:47 | NUR ---
SHIFT SUMMARY NO ACUTE CHANGES THIS SHIFT. PT HAS REMAINED ALERT AND ORIENTED WHEN AWAKE. PT IS VERY HARD OF HEARING, BUT RESPONDS APPROPRIATELY. PT WITH 2 PIVS AND PG SALINE LOCKED. PT ON 4L O2 NC, VITAL SIGNS STABLE THIS SHIFT. PT REMAINS IN AFIB WITH CONTROLLED RATE. PT NOSEBLEED SUBSIDED THIS MORNING. GARNER TEMP PROBE IN PLACE WITH LARGE AMOUNT OF YELLOW URINE OUTPUT NOTED. PT WITHOUT CHANGES TO WOUNDS THIS SHIFT. PT ABLE TO FEED SELF, BUT WITH POOR APPETITE THIS SHIFT. NO FAMILY AT BEDSIDE. WILL CONTINUE TO MONITOR AND REPORT OFF TO ONCOMING RN.
[2025-02-07] VITALS (21 sets, daily range): BP systolic 108–148; BP diastolic 42–91
[2025-02-07 03:37] LABS: BASOPHILS ABSOLUTE AUTO 0.01 K/mm3 (0.00-0.23); BASOPHILS PERCENT AUTO 0 % (0-2); EOSINOPHILS ABSOLUTE AUTO 0.14 K/mm3 (0.00-0.68); EOSINOPHILS PERCENT AUTO 2 % (0-6); Hematocrit 28.4 % (37.0-53.0); Hemoglobin 9.8 g/dL (13.5-17.5); IMMATURE GRAN ABSOLUTE AUTO 0.07 K/mm3 (0.00-0.10); IMMATURE GRAN PERCENT AUTO 1 % (0-1); LYMPHOCYTES ABSOLUTE AUTO 1.08 K/mm3 (0.84-5.20); LYMPHOCYTES PERCENT AUTO 13 % (21-46); MONOCYTES ABSOLUTE AUTO 0.60 K/mm3 (0.16-1.47); MONOCYTES PERCENT AUTO 7 % (4-13); Mean Corpuscular HGB Conc 34.5 g/dL (31.5-36.5); Mean Corpuscular Volume 107 fL (80-100); NEUTROPHILS ABSOLUTE AUTO 6.23 K/mm3 (1.96-9.15); NEUTROPHILS PERCENT AUTO 77 % (41-73); NRBC ABSOLUTE 0.00 K/mm3 (0.00-0.02); NRBC Auto 0.0 /100 WBC (0.0-0.2); Platelet Count 304 K/mm3 (150-400); RDW Coefficient Variation 13.0 % (11.7-14.2); RDW Standard Deviation 50.7 fL (35.1-46.3)
[2025-02-07 03:57] LABS: Alanine Aminotransfer (ALT/SGP 53.0 U/L (12-78); Albumin, Blood 2.0 g/dL (3.4-5.0); Albumin/Globulin Ratio 0.6 (0.8-1.8); Anion Gap 8.0 mmol/L (3-11); Aspartate Aminotrans (AST/SGOT 56.0 U/L (12-37); Bilirubin, Total 0.8 mg/dL (0.1-1.0); Blood Urea Nitrogen 39.0 mg/dL (8-24); CO2, Blood 31.0 mmol/L (21-32); Calcium, Blood 7.6 mg/dL (8.5-10.1); Chloride, Blood 102.0 mmol/L (98-108); Creatinine, Blood 1.11 mg/dL (0.60-1.20); Globulin, Blood 3.5 g/dL (2.2-4.0); Glucose, Blood 115.0 mg/dL (70-99); Magnesium, Blood 1.8 mg/dL (1.6-2.4); Potassium, Blood 3.4 mmol/L (3.5-5.5); Sodium, Blood 138.0 mmol/L (136-145); Total Protein, Blood 5.5 g/dL (6.4-8.2)
[2025-02-07] MEDS ORDERED: Mag Sulfate 1 GM/D5% 100ML 100 ML IV STA (06:23)
--- NOTE | 2025-02-07 06:23 | NUR ---
SHIFT SUMMARY NO ACUTE CHANGES DURING NOC. SLEPT INTERMITTENTLY. ROUSES EASILY TO VERBAL STIMULI. PT IS VERY [place], BUT IS ABLE TO COMMUNICATE EFFECTIVELY. REPOSITIONED Q2H. MEDICATED WITH FENTANYL 25MCG IV AND ULTRAM 50MG PO FOR C/O GENERALIZED PAIN/DISCOMFORT. O2 4L NC. SATS STABLE. RESPIRATIONS EVEN AND UNLABORED. OCCASIONAL COUGH NOTED. REMAINS IN AFIB, RATE STABLE. BP WNL. TOLERATING DIET. GARNER PATENT AND DRAINING YELLOW URINE. WOUNDS UNCHANGED FROM PREVIOUS ASSESSMENT. BRITTNEY POWERGLIDE AND LEFT AC IVs ARE PATENT, SL. PLAN OF CARE ONGOING. WILL REPORT TO ONCOMING RN WHEN AVAILABLE.
--- NOTE | 2025-02-07 16:13 | NUR ---
MET WITH PATIENT TO DISCUSS CODE STATUS. WE REVIEWED A POLST. PATIENT DIFLECTED THE CONVERSATION AND EXPRESSED THAT WE COULD TALK ABOUT IT ON TUESDAY. THERAPUTIC CONVERSATION ABOUT HIS WISHES AND LIFE BUT HE DID NOT SETTLE ON A DECISION.
--- NOTE | 2025-02-07 16:35 | NUR ---
SHIFT SUMMARY NO ACUTE CHANGES THIS SHIFT. PT HAS REMAINED ALERT AND ORIENTED WHEN AWAKE. PHYSICAL THERAPY ATTEMPTED TO WORK WITH PT THIS SHIFT, WITHOUT MUCH PT ENGAGEMENT. PT MED PER EMAR FOR BACK/BUTTOCKS PAIN. VITAL SIGNS HAVE REMAINED STABLE. PT ON 2L O2 NC. PT WITH PG AND PIV SALINE LOCKED. PT TOLERATING PO INTAKE WELL. PT WITH MULTIPLE BM'S THIS SHIFT. GARNER TEMP PROBE IN PLACE WITH LARGE AMOUNT OF YELLOW URINE OUTPUT NOTED. WOUNDS REMAIN UNCHANGED. PT NEICE UPDATED VIA PHONE THIS SHIFT. WILL CONTINUE TO MONITOR AND REPORT OFF TO ONCOMING RN.
[2025-02-07] MEDS ORDERED: LORazepam 2 MG/ML 1ML Injection IV ONE (19:50)
[2025-02-08] VITALS: BP 121/43
[2025-02-08 04:12] LABS: BASOPHILS ABSOLUTE AUTO 0.02 K/mm3 (0.00-0.23); BASOPHILS PERCENT AUTO 0 % (0-2); EOSINOPHILS ABSOLUTE AUTO 0.19 K/mm3 (0.00-0.68); EOSINOPHILS PERCENT AUTO 2 % (0-6); Hematocrit 28.3 % (37.0-53.0); Hemoglobin 9.9 g/dL (13.5-17.5); IMMATURE GRAN ABSOLUTE AUTO 0.12 K/mm3 (0.00-0.10); IMMATURE GRAN PERCENT AUTO 1 % (0-1); LYMPHOCYTES ABSOLUTE AUTO 1.23 K/mm3 (0.84-5.20); LYMPHOCYTES PERCENT AUTO 14 % (21-46); MONOCYTES ABSOLUTE AUTO 0.66 K/mm3 (0.16-1.47); MONOCYTES PERCENT AUTO 8 % (4-13); Mean Corpuscular HGB Conc 35.0 g/dL (31.5-36.5); Mean Corpuscular Volume 104 fL (80-100); NEUTROPHILS ABSOLUTE AUTO 6.32 K/mm3 (1.96-9.15); NEUTROPHILS PERCENT AUTO 74 % (41-73); NRBC ABSOLUTE 0.00 K/mm3 (0.00-0.02); NRBC Auto 0.0 /100 WBC (0.0-0.2); Platelet Count 333 K/mm3 (150-400); RDW Coefficient Variation 13.0 % (11.7-14.2); RDW Standard Deviation 48.3 fL (35.1-46.3)
[2025-02-08 04:34] LABS: Alanine Aminotransfer (ALT/SGP 67.0 U/L (12-78); Albumin, Blood 2.0 g/dL (3.4-5.0); Albumin/Globulin Ratio 0.5 (0.8-1.8); Anion Gap 6.0 mmol/L (3-11); Aspartate Aminotrans (AST/SGOT 75.0 U/L (12-37); Bilirubin, Total 0.8 mg/dL (0.1-1.0); Blood Urea Nitrogen 35.0 mg/dL (8-24); CO2, Blood 32.0 mmol/L (21-32); Calcium, Blood 7.5 mg/dL (8.5-10.1); Chloride, Blood 101.0 mmol/L (98-108); Creatinine, Blood 1.01 mg/dL (0.60-1.20); Globulin, Blood 3.7 g/dL (2.2-4.0); Glucose, Blood 113.0 mg/dL (70-99); Magnesium, Blood 2.1 mg/dL (1.6-2.4); Potassium, Blood 3.4 mmol/L (3.5-5.5); Sodium, Blood 136.0 mmol/L (136-145); Total Protein, Blood 5.7 g/dL (6.4-8.2)
[2025-02-08 05:00] VITALS: BP 115/43
--- NOTE | 2025-02-08 06:58 | NUR ---
END OF SHIFT SUMMARY Recieve patient, had some temporary confusion with current situation . Spoke with niece and was able to reorientate to setting. No further confusion. Multiple changes due to incontience , PRN medication given per EMR , and pt awake till 0400. Currently sleepings VSS.
[2025-02-08 08:00] VITALS: BP 134/62
[2025-02-08 08:02] VITALS: BP 134/62
--- NOTE | 2025-02-08 14:19 | NUR ---
WOUNDS DR LEVIN AT BEDSIDE TO EXAMINE WOUNDS. INSTRUCTED TO USE BARRIER CREAM OVER ENTIRE WOUND SURFACE.
[2025-02-08 16:00] VITALS: BP 153/59
--- NOTE | 2025-02-08 17:02 | NUR ---
SHIFT SUMMARY NO ACUTE CHANGES THIS SHIFT. PT HAS REMAINED ALERT AND ORIENTED WHEN AWAKE. PT IS VERY [place], BUT ANSWERS QUESTIONS APPROPRIATELY. VITAL SIGNS STABLE. PT ON 2L O2 NC. PT TOLERATING PO INTAKE WELL, BUT HAS POOR APPETITE THIS SHIFT. PT WITH FREQUENT LOOSE BM'S THIS SHIFT. GARNER TEMP PROBE REMAINS IN PLACE WITH YELLOW URINE OUTPUT NOTED. WOUNDS TO BUTTOCKS REMAINS UNCHANGED. PT WORKED WITH PHYSICAL THERAPY FROM BED THIS SHIFT. PG AND IV SALINE LOCKED. NO FAMILY AT BEDSIDE. WILL CONTINUE TO MONITOR AND REPORT OFF TO ONCOMING RN.
[2025-02-08 20:00] VITALS: BP 140/60
[2025-02-08] MEDS ORDERED: Protein Supplement 30 ML UD PO SCH (21:00)
[2025-02-08] MEDS ORDERED: Arginine/Glutamine/Calcium Hmb 1 Packet PO SCH (21:00)
[2025-02-09] VITALS (7 sets, daily range): BP systolic 127–146; BP diastolic 43–61
[2025-02-09 04:15] LABS: BASOPHILS ABSOLUTE AUTO 0.02 K/mm3 (0.00-0.23); BASOPHILS PERCENT AUTO 0 % (0-2); EOSINOPHILS ABSOLUTE AUTO 0.22 K/mm3 (0.00-0.68); EOSINOPHILS PERCENT AUTO 3 % (0-6); Hematocrit 29.7 % (37.0-53.0); Hemoglobin 10.2 g/dL (13.5-17.5); IMMATURE GRAN ABSOLUTE AUTO 0.11 K/mm3 (0.00-0.10); IMMATURE GRAN PERCENT AUTO 1 % (0-1); LYMPHOCYTES ABSOLUTE AUTO 1.09 K/mm3 (0.84-5.20); LYMPHOCYTES PERCENT AUTO 14 % (21-46); MONOCYTES ABSOLUTE AUTO 0.59 K/mm3 (0.16-1.47); MONOCYTES PERCENT AUTO 7 % (4-13); Mean Corpuscular HGB Conc 34.3 g/dL (31.5-36.5); Mean Corpuscular Volume 107 fL (80-100); NEUTROPHILS ABSOLUTE AUTO 5.97 K/mm3 (1.96-9.15); NEUTROPHILS PERCENT AUTO 75 % (41-73); NRBC ABSOLUTE 0.00 K/mm3 (0.00-0.02); NRBC Auto 0.0 /100 WBC (0.0-0.2); Platelet Count 346 K/mm3 (150-400); RDW Coefficient Variation 13.1 % (11.7-14.2); RDW Standard Deviation 51.2 fL (35.1-46.3)
[2025-02-09 04:33] LABS: Anion Gap 5.0 mmol/L (3-11); Blood Urea Nitrogen 29.0 mg/dL (8-24); CO2, Blood 34.0 mmol/L (21-32); Calcium, Blood 7.9 mg/dL (8.5-10.1); Chloride, Blood 102.0 mmol/L (98-108); Creatinine, Blood 1.01 mg/dL (0.60-1.20); Glucose, Blood 120.0 mg/dL (70-99); Potassium, Blood 4.0 mmol/L (3.5-5.5); Sodium, Blood 137.0 mmol/L (136-145)
[2025-02-09] MEDS ORDERED: Folic Acid 1 MG TAB PO SCH (09:00)
--- NOTE | 2025-02-09 23:16 | NUR ---
PT TRANSFER TO ROOM 363. REPORT GIVEN TO BRIANNA. BELONGININGS TAKEN WITH PT TO ROOM.
[2025-02-10 04:58] VITALS: BP 148/59
[2025-02-10 05:22] LABS: BASOPHILS ABSOLUTE AUTO 0.02 K/mm3 (0.00-0.23); BASOPHILS PERCENT AUTO 0 % (0-2); EOSINOPHILS ABSOLUTE AUTO 0.21 K/mm3 (0.00-0.68); EOSINOPHILS PERCENT AUTO 3 % (0-6); Hematocrit 29.4 % (37.0-53.0); Hemoglobin 10.4 g/dL (13.5-17.5); IMMATURE GRAN ABSOLUTE AUTO 0.09 K/mm3 (0.00-0.10); IMMATURE GRAN PERCENT AUTO 1 % (0-1); LYMPHOCYTES ABSOLUTE AUTO 1.08 K/mm3 (0.84-5.20); LYMPHOCYTES PERCENT AUTO 15 % (21-46); MONOCYTES ABSOLUTE AUTO 0.54 K/mm3 (0.16-1.47); MONOCYTES PERCENT AUTO 8 % (4-13); Mean Corpuscular HGB Conc 35.4 g/dL (31.5-36.5); Mean Corpuscular Volume 104 fL (80-100); NEUTROPHILS ABSOLUTE AUTO 5.10 K/mm3 (1.96-9.15); NEUTROPHILS PERCENT AUTO 72 % (41-73); NRBC ABSOLUTE 0.00 K/mm3 (0.00-0.02); NRBC Auto 0.0 /100 WBC (0.0-0.2); Platelet Count 353 K/mm3 (150-400); RDW Coefficient Variation 13.1 % (11.7-14.2); RDW Standard Deviation 49.9 fL (35.1-46.3)
[2025-02-10 05:51] LABS: Alanine Aminotransfer (ALT/SGP 77.0 U/L (12-78); Albumin, Blood 2.1 g/dL (3.4-5.0); Albumin/Globulin Ratio 0.6 (0.8-1.8); Anion Gap 8.0 mmol/L (3-11); Aspartate Aminotrans (AST/SGOT 71.0 U/L (12-37); Bilirubin, Total 0.6 mg/dL (0.1-1.0); Blood Urea Nitrogen 29.0 mg/dL (8-24); CO2, Blood 31.0 mmol/L (21-32); Calcium, Blood 8.2 mg/dL (8.5-10.1); Chloride, Blood 104.0 mmol/L (98-108); Creatinine, Blood 0.95 mg/dL (0.60-1.20); Globulin, Blood 3.6 g/dL (2.2-4.0); Glucose, Blood 120.0 mg/dL (70-99); Potassium, Blood 3.6 mmol/L (3.5-5.5); Sodium, Blood 139.0 mmol/L (136-145); Total Protein, Blood 5.7 g/dL (6.4-8.2)
[2025-02-10 07:51] VITALS: BP 142/57
--- NOTE | 2025-02-10 16:17 | NUR ---
SHIFT SUMMARY PT AOX3/4, COOPERATIVE, ABLE TO MAKE NEEDS KNOWN. PT HAS BEEN IN BED FOR DURATION OF SHIFT. TOLERATING MEDICATIONS. IS ONLY DRINKING SHAKES AND LIQUIDS FOR MOST OF MEALS, SAYING "IM JUST NOT THAT HUNGRY". OFF-LOADING BUTTOCKS TO SUPPORT HEALING WOUNDS, PICS IN CHART. MD DID ASSESS WOUNDS AND CONTACTED SURG. THIS RN UNAWARE OF OUTCOME OF COMMUNICATINO. BED IN LOWEST POSITION, CALL LIGHT WITHIN REACH. CATHETER INTACT, DRAINING TO GRAVITY.
[2025-02-10 20:26] VITALS: BP 157/61
[2025-02-11 04:10] VITALS: BP 133/64
[2025-02-11 05:11] LABS: BASOPHILS ABSOLUTE AUTO 0.02 K/mm3 (0.00-0.23); BASOPHILS PERCENT AUTO 0 % (0-2); EOSINOPHILS ABSOLUTE AUTO 0.21 K/mm3 (0.00-0.68); EOSINOPHILS PERCENT AUTO 3 % (0-6); Hematocrit 30.4 % (37.0-53.0); Hemoglobin 10.3 g/dL (13.5-17.5); IMMATURE GRAN ABSOLUTE AUTO 0.07 K/mm3 (0.00-0.10); IMMATURE GRAN PERCENT AUTO 1 % (0-1); LYMPHOCYTES ABSOLUTE AUTO 1.23 K/mm3 (0.84-5.20); LYMPHOCYTES PERCENT AUTO 19 % (21-46); MONOCYTES ABSOLUTE AUTO 0.51 K/mm3 (0.16-1.47); MONOCYTES PERCENT AUTO 8 % (4-13); Mean Corpuscular HGB Conc 33.9 g/dL (31.5-36.5); Mean Corpuscular Volume 105 fL (80-100); NEUTROPHILS ABSOLUTE AUTO 4.51 K/mm3 (1.96-9.15); NEUTROPHILS PERCENT AUTO 69 % (41-73); NRBC ABSOLUTE 0.00 K/mm3 (0.00-0.02); NRBC Auto 0.0 /100 WBC (0.0-0.2); Platelet Count 354 K/mm3 (150-400); RDW Coefficient Variation 13.1 % (11.7-14.2); RDW Standard Deviation 50.8 fL (35.1-46.3)
--- NOTE | 2025-02-11 05:44 | NUR ---
SHIFT SUMMARY: Pt is admitted for septic shock and is a full code. Is alert and able to make needs known. ADLs have been 1-2 but did not get out of bed. States pain is manageable. When asked he states about 8/10. When offered something to help manage then pain he stated that he would let this LN know when he needed it. He did express concern about pain management after pending I&D this AM. he was informed that pain management would be addressed after the I&D if needed. He stated he understood. Power glide to right forearm is patent with dressing that is CDI. mcclain in place and draining clear yellow urine.
[2025-02-11 05:47] LABS: Alanine Aminotransfer (ALT/SGP 76.0 U/L (12-78); Albumin, Blood 2.1 g/dL (3.4-5.0); Albumin/Globulin Ratio 0.6 (0.8-1.8); Anion Gap 7.0 mmol/L (3-11); Aspartate Aminotrans (AST/SGOT 62.0 U/L (12-37); Bilirubin, Total 0.4 mg/dL (0.1-1.0); Blood Urea Nitrogen 31.0 mg/dL (8-24); CO2, Blood 32.0 mmol/L (21-32); Calcium, Blood 8.4 mg/dL (8.5-10.1); Chloride, Blood 104.0 mmol/L (98-108); Creatinine, Blood 1.01 mg/dL (0.60-1.20); Globulin, Blood 3.6 g/dL (2.2-4.0); Glucose, Blood 125.0 mg/dL (70-99); Magnesium, Blood 1.8 mg/dL (1.6-2.4); Potassium, Blood 3.6 mmol/L (3.5-5.5); Sodium, Blood 139.0 mmol/L (136-145); Total Protein, Blood 5.7 g/dL (6.4-8.2)
[2025-02-11] MEDS ORDERED: Potassium Chloride 10 Meq Tablet SA PO ONE ×2 (06:50→09:30)
[2025-02-11] MEDS ORDERED: Mag Sulfate 1 GM/D5% 100ML 100 ML IV STA (07:05)
[2025-02-11 07:47] VITALS: BP 151/56
[2025-02-11 14:55] VITALS: BP 147/54
[2025-02-11] MEDS ORDERED: JUVEN PACKET1 EAC3 PO (15:13)
[2025-02-11] MEDS ORDERED: B-12500 MC2 PO (15:13)
[2025-02-11] MEDS ORDERED: FURO40 PO (15:13)
[2025-02-11] MEDS ORDERED: Promod946 ML PO (15:14)
[2025-02-11] MEDS ORDERED: VISBIOME 112.51 EACH PO (15:14)
[2025-02-11] MEDS ORDERED: METAMUCIL MULT660 G2 PO (15:15)
[2025-02-11] MEDS ORDERED: ZINCTRAL57 GM TOP (15:16)
[2025-02-11 17:52] VITALS: BP 158/61
--- NOTE | 2025-02-11 18:14 | NUR ---
SHIFT SUMMARY PT A&OX4, VSS, TOLERATING PO, VOIDING, AND PAIN MANAGED PER EMAR. ROUNDED ON PT AND DID BEDSIDE DEBRIDEMENT. NEW WOUND CARE/DRESSING CHANGE ORDER IN JUL. PT REFUSED PHYSICAL THERAPY THIS SHIFT. PLAN FOR D/C TOMORROW TO [facility]. NO OTHER ACUTE CHANGES. CALL LIGHT WITHIN REACH AND PT ABLE TO MAKE NEEDS KNOWN.
[2025-02-11 19:59] VITALS: BP 165/53
[2025-02-12 04:01] VITALS: BP 155/50
--- NOTE | 2025-02-12 06:26 | NUR ---
BRAKE RIDER SUMMARY PT A&OX4, VSS. PLEASANT AND COOOPERATIVE W/ CARE. PT HAS BEEN ASLEEP FOR MOST OF THE NIGHT. CHEST RISE/RESPIRATIONS NOTED. NO ACUTE CHANGES THIS SHIFT, EXCEPT PRN TRAMADOL ADMIN X 1 FOR PAIN W/ GOOD EFFECT. GARNER REMAINS IN PLACE. DRAINING CLEAR, YELLOW URINE TO GRAVITY. FREE OF KINKS/OBSTRUCTIONS. BED RAILS UP X 2, BED IN LOWEST POSITION, BED WHEELS LOCKED, PERSONAL BELONGINGS AND CALL LIGHT WITHIN REACH FOR SAFETY. PT TO BE DISCHARGED TODAY TO [facility].
[2025-02-12 07:54] VITALS: BP 156/61
--- NOTE | 2025-02-12 12:31 | NUR ---
DISCHARGE NOTE PT D/C TO SNF AT 1220. PT A&OX4, VSS, LIFT ASSIST, TOLERATNG PO, VOIDING, AND DENIED PAIN. WOUND CARE/DRESSING CHANGE COMPLETED PER ORDER. BELONGINGS WERE RETURNED. HARD SCRIPT PLACED IN D/C PACKET. D/C PACKET GIVEN TO TRANSPORT. PT ESCOURTED OUT VIA GURNEY. THIS RN CALLED [facility] AND GAVE REPORT TO ALEX VALLEJO. THIS RN NOTIFIED PT'S NIECE RANDI OF D/C.
== END 2025-02-12 12:20 | DRG 682 ==
LOC: ER 20:18 → ICUE 20:19 → ERHOLD 20:19 → ICUE 02-05 03:10 → MEDS 02-05 14:28 → ICUE 02-06 08:45 → MEDS 02-09 23:11
PROVIDERS: Emergency Medicine; Family Medicine; Student in an Organized Health Care Education/Training Program; ADMIT Student in an Organized Health Care Education/Training Program
PROC: 0T9B70Z Drainage of Bladder with Drainage Device, Via Natural or Artificial Opening (ICD-10-PCS; principal; 2025-02-05)
PROC: 3E03329 Introduction of Other Anti-infective into Peripheral Vein, Percutaneous Approach (ICD-10-PCS; 2025-02-05)
PROC: 0HB6XZZ Excision of Back Skin, External Approach (ICD-10-PCS; 2025-02-11)
DX: N17.9 Acute kidney failure, unspecified (principal); G92.8 Other toxic encephalopathy; J96.01 Acute respiratory failure with hypoxia; I50.33 Acute on chronic diastolic (congestive) heart failure; E51.12 Wet beriberi; R65.10 Systemic inflammatory response syndrome (SIRS) of non-infectious origin without acute organ dysfunction; F10.931 Alcohol use, unspecified with withdrawal delirium; I11.0 Hypertensive heart disease with heart failure; I48.91 Unspecified atrial fibrillation; I35.0 Nonrheumatic aortic (valve) stenosis; Z86.73 Personal history of transient ischemic attack (TIA), and cerebral infarction without residual deficits; I25.2 Old myocardial infarction; E78.5 Hyperlipidemia, unspecified; L89.159 Pressure ulcer of sacral region, unspecified stage; E87.6 Hypokalemia; E83.42 Hypomagnesemia; L98.429 Non-pressure chronic ulcer of back with unspecified severity; R54 Age-related physical debility; F17.210 Nicotine dependence, cigarettes, uncomplicated; Z79.82 Long term (current) use of aspirin; Z79.02 Long term (current) use of antithrombotics/antiplatelets; Z79.899 Other long term (current) drug therapy; Y90.0 Blood alcohol level of less than 20 mg/100 ml; E66.9 Obesity, unspecified; H91.90 Unspecified hearing loss, unspecified ear
CPT/HCPCS: 36415; 51702; 70450; 71045; 71275; 74176; 80048; 80053; 80320; 81001; 82607; 82746; 82803; 83605; 83735; 83880; 84100; 84145; 84443; 84484; 85025; 85610; 85730; 87040; 87086; 87637; 93005; 93010; 94640; 94760; 94762; 96365-59; 96366; 96367; 96368; 96375; 96375-59; 96376-59; 97110; 97162; 97530; 99285-25; A9270; C1751; C8929; G0103; G0378; J0282; J0696; J1644; J1650; J1938; J3010; J3411; J3475; J3480; J7050; Q9957; Q9967